=== PATIENT | male | born 1940 | race Caucasian/White ===

== ENCOUNTER 2022-09-27 07:42 | Day surgery (SDC) | payer MEDICARE, SELFPAY ==
[2022-09-27] VITALS (7 sets, daily range): BP systolic 129–161; BP diastolic 64–80; PULSE 46–61; RESP 16–17; TEMP 36.4–36.5; O2SAT 92–98; BMI 21.1
[2022-09-27] MEDS: Lactated Ringers 1,000 ML 15 ML IV (08:44)
--- NOTE | 2022-09-27 09:26 | HP.PCM_ITS ---
HPI - General HPI Narrative KIMBERLI WALTERS, is a 82 M who presents for right ectr for CTS. Here with his son. No changes to h and p. Right wrist marked. Plan per Dr Janes duque for ashishlouis juan. OK to proceed, no further questions. Advised not to drive 2 days post op. MR#: [id number] Acct: [id number] Name:KIMBERLI SOTOMAYOR Rep #: [id number] : 1940 ? ? Provider: Dr. Jered Alva MD Age/Sex:? 82/M ? ? Location: [facility] [place].KG Status: Signed Intake Vital Signs ? 09/07/2209:39 Height 5 ft 9 in Weight: 140 lb BMI 20.7 Intake Visit Reasons:?Right wrist Chief Complaint: right hand/ wrist pain Is patient in pain?: Yes (hand/ wrist) Pain scale (1-10): 8 Allergies No Known Allergies Allergy (Unverified 09/07/22 09:39) Medications finasteride 5 mg tablet 5 mg PO QDAY #90 tabs 01/09/18 [Rx Confirmed 09/07/22] ginkgo biloba extract-Panax ginseng root extract 60 mg-100 mg capsule cap PO 01/09/18 [History Confirmed 09/07/22] glucosamine sulfate 1,000 mg capsule 1,000 mg PO BID 01/09/18 [History Confirmed 09/07/22] multivitamin 1 tab PO QAM 01/09/18 [History Confirmed 09/07/22] nabumetone 500 mg tablet 500 mg PO BID #180 tabs 01/09/18 [Rx Confirmed 09/07/22] omega-3 fatty acids-fish oil 360 mg-1,200 mg capsule (Fish Oil) 1 cap PO QDAY 01/09/18 [History Confirmed 09/07/22] amlodipine 5 mg tablet mg PO 09/07/22 [History Confirmed 09/07/22] tamsulosin 0.4 mg capsule mg PO 09/07/22 [History Confirmed 09/07/22] PFSH Medical History? Anxiety Enlarged prostate Hypertension Rheumatoid arthritis Right carpal tunnel syndrome Surgical History? Cataracts, bilateral Family History? Father Diabetes CVA (cerebral vascular accident)Brother DiabetesMother Blood clots in brain Social History? Smoking Status:? Former smoker how long ago did patient quit smoking:? 25 alcohol intake:? never substance use type:? does not use what type of physical activity do you participate in:? walking frequency:? daily HPI Right wrist Details: Parts of this documentation were recorded by a scribe, this documentation accurately reflects the service provided and the decisions made by me, Dr. Jered Alva MD 09/07/22 0937. KIMBERLI WALTERS is a 82 year old M here today for? right carpal tunnel syndrome on NCS. Since may 3 months, can use them without pain but the numbness is still there. Does feel weak, starting to get a bit of strength, RHD. Worse at night, numb and stinging. Uses a chainsaw quite a bit.? This exacerbates the problem.? It is numb all the time.? It is starting to happen on the left side.? He is here with his son. Ortho Exam General General: Yes no acute distress Neurologic: Yes alert and Yes oriented x3 Psychologic: Yes reasonable and appropriate Right Wrist/Hand Skin/Wound: Yes CDI, No Swelling, No Ecchymosis, Yes nail intact and Yes capillary refill normal A1 shahid trigger: No Right Wrist: Yes Thenar Atrophy; No Tinel's or Phalen's Motor: EPL: 5, FDP-2: 5, 1st Dorsal Interosseous: 5 and APB: 4 Sensation: Radial: I, Ulnar: I and Median: D Left Wrist/Hand Skin/Wound: No Swelling and No Ecchymosis Supplemental Info Nerve conduction studies from 08/23/2022 the impression is 1.? 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 2.? There is electrophysiologic evidence consistent with chronic and very mildly active right C5 and/or C6 radiculopathy. Coding Level of Care Code Off vis,new,level 3 Diagnoses Right carpal tunnel syndrome? G56.01 Assessment and Plan Assessment and Plan (1) Right carpal tunnel syndrome: ?Status:?Acute ?Plan: 82-year-old M signs and symptoms as well as some mild clinical evidence and nerve conduction study of right median neuropathy at the wrist consistent with carpal tunnel syndrome.? We discussed the pros and cons risks and benefits of continued nonoperative management bracing physical therapy injections and surgical option for this.? He is more interested in a definitive surgical solution.? Given the severity this may be more unreliable as well as his age.? This may have been going on for longer than 3 months as well.? He wishes to go ahead with right endoscopic carpal tunnel release 2 weeks to heal the incision typically 6 weeks before going back to heavy lifting and grasping or using a chainsaw.? He understands wishes to proceed signed a consent form for right endoscopic carpal tunnel release and possible need for blood products. Pros and cons risks and benefits were discussed with the patient including but n ot limited to infection, pain, stiffness, bleeding, damage to surrounding structures, neurovascular injury, recurrence or retear, failure or wear of hardware or fixation, instability, fracture, deep vein thrombosis and pulmonary embolism, anesthetic risks, patient dissatisfaction, need for further surgery and other risks.? Patient understood and wished to proceed with surgery, and signed the informed consent documentation. COUNTS INCLUDE 234 BEDS AT THE [facility] Medical History (Updated 09/22/22 @ 12:03 by Felicia Farrell) Anxiety Anxiety Arthritis Back pain Bladder disease Cancer Depression Easy bruising Enlarged prostate Former smoker Heartburn History of edema History of pain when walking Hypertension Hypertension Injury of head and neck Leg cramps Prostate disease Restless legs Rheumatoid arthritis Right carpal tunnel syndrome Wears dentures Wears partial dentures Home Medications finasteride 5 mg tablet 5 mg PO QDAY #90 tabs 01/09/18 [Rx Last Taken Unknown] ginkgo biloba extract-Panax ginseng root extract 60 mg-100 mg capsule 1 cap PO DAILY 01/09/18 [History Last Taken Unknown] omega-3 fatty acids-fish oil 360 mg-1,200 mg capsule (Fish Oil) 1 cap PO QDAY 01/09/18 [History Last Taken Unknown] amlodipine 5 mg tablet 5 mg PO DAILY 09/07/22 [History Last Taken Unknown] tamsulosin 0.4 mg capsule 0.4 mg PO DAILY 09/07/22 [History Last Taken Unknown] SUPER VEGGIES 1 cap PO/SL BID 09/22/22 [History Last Taken Unknown] Super Frui 1 cap PO/SL DAILY 09/22/22 [History Last Taken Unknown] acetaminophen 650 mg tablet,extended release (Tylenol 8 Hour) 650 mg PO QHS 09/22/22 [History Last Taken Unknown] ascorbic acid (vitamin C) 1,000 mg chewable tablet 1 g PO DAILY 09/22/22 [History Last Taken Unknown] cholecalciferol (vitamin D3) 125 mcg (5,000 unit) tablet (Vitamin D3) 125 mcg PO DAILY 09/22/22 [History Last Taken Unknown] ferrous sulfate 325 mg (65 mg iron) tablet (Iron (ferrous sulfate)) 325 mg PO DAILY 09/22/22 [History Last Taken Unknown] glucosamine sulf dipot chlr,msm,chond 550 mg-C 30 mg-jeremy 1 mg capsule (Glucosamine Chondroitin) 1 cap PO DAILY 09/22/22 [History Last Taken Unknown] vitamin B complex 1 cap PO DAILY 09/22/22 [History Last Taken Unknown] Allergy/AdvReac Type Severity Reaction Status Date / Time No Known Allergies Allergy Unverified 09/27/22 08:23 Family History Father Diabetes CVA (cerebral vascular accident) Brother Diabetes Mother Blood clots in brain Surgical History (Updated 09/22/22 @ 12:03 by Felicia Farrell) Cataracts, bilateral Hx of colonoscopy Social History Smoking Status: Former smoker how long ago did patient quit smokin alcohol intake: never substance use type: does not use what type of physical activity do you participate in: walking frequency: daily Vital Signs Vital Signs Vital Signs: 09/27/22 08:26 09/27/22 08:26 Temperature 97.7 F L Temperature Source Temporal Pulse Rate 61 Respiratory Rate 16 Respiratory Pattern Normal Blood Pressure 147/64 H Blood Pressure Mean 91 Blood Pressure Source Monitor Blood Pressure Position Semi-Fowlers Blood Pressure Location Left Arm Pulse Ox 98 Oxygen Delivery Method Room Air Weight Weight: 143 lb 4.807 oz Body Mass Index (BMI) 21.1
[2022-09-27] MEDS: Cefazolin 2 GM in 0.9% Normal Saline 100 ML IV (09:54)
--- NOTE | 2022-09-27 10:40 | OP.PCM_ITS ---
Problems Associated Problem List Diagnoses (1) Right carpal tunnel syndrome: Report of Operation Date of Procedure: 09/27/22 Pre-Operative Diagnosis: right carpal tunnel syndrome Post-Operative Diagnosis: same Surgery/Procedure Performed:: right endoscopic carpal tunnel release Surgeon: Jered Alva Type of Anesthesia: Block,[place] Anesthesiologist: Jamie Zafar Estimated Blood Loss (mL): 5cc Description of Procedure: Patient was brought to the operating room theater.? The patient was administered 2 g of IV Ancef prior to the start of the procedure.? Placed supine on the operating room table.? Anesthesia induced ashish block. ? SCDs on the legs.? Tourniquet applied to the operative extremity, appropriately padded. Arm table used. Operative extremity prepped and draped in the usual sterile fashion with chlorhexidine-based prep solution allowing over 3 minutes drying time prior to draping.? Preoperative timeout performed to confirm the site patient and the surgery. Used the [employer] [place] endoscopic carpal tunnel kit / technique.? I made a transverse 2 cm incision in line with the? transverse wrist crease.? This was in line with the fourth digit.? I carried the dissection down through skin and subcutaneous tissue achieved meticulous hemostasis. Just ulnar to palmaris tendon.? I incised the antebrachial fascia.? I passed sequential dilators into the carpal tunnel along the radial border of the Guyon's canal aiming for the fourth digit with the hand in extension.? I used a synovial elevator to identify the transverse fibers of the transverse carpal tunnel ligament.? Passed the scope into the carpal tunnel. Once I had identified the full proximal and distal extent of the ligament I fully released the ligament under direct visualization by deploying the blade and slowly withdrawing the scope made sequential passes until I no longer felt tension as well as the entire extent of the ligament was released under direct visualization.?Sounded the tunnel with vincent tenotomy scissors, complete release, no bands. Arthroscope light was more visible through the skin. Pictures taken and saved. Wound thoroughly irrigated.? Tourniquet let down prior to end of the case and meticulous hemostasis achieved.? Thorough irrigation.? ? Incision closed with 3- 0 Monocryl.? Steri-Strips were applied after the skin was cleaned and dried. Water safe sponge dressing applied.? Patient woken up,? transferred off the operating room table and taken to postanesthetic care unit in stable condition. All sponge needle instrument counts were correct no complications.? Plan for the patient to be discharged home according to day surgery criteria when they are comfortable. Follow-up in the office in 2 days time. Complications none Admit VTE Documentation VTE Present on Admission: No VTE Mechan Device Prophylaxis: SCD's VTE Pharm Prophylaxis ordered?: No Reason prophylaxis not ordered:: Treatment Not Indicated Procedures Musculoskeletal [id number]: Other Procedure See Report
--- NOTE | 2022-09-27 10:42 | DCINST_ITS ---
Discharge Instructions Diet Discharge Diet: No restrictions Activity Discharge Activity: May Shower Ice area for (Minutes): 10 Lifting Restrictions: ok to use and hand and wrist, no heavy lifting or gripping Dressing / Incision Call your doctor if your incision/area has: Continuous Slow Oozing, Sudden Increased Bleeding, Increased Pain/ Swelling, Increased Redness, Foul Smelling Discharge and Swelling at the incision site Remove Dressing in: leave in place till F/U Cleanse incision/area with: Do not get Incision Wet Follow Up Care Please Follow Up With: Jered Alva MD When: 2 days Test Results: Test results from this visit will be discussed in further detail at your follow- up appointment, if applicable. Discharge Plan Admission Attending Provider: Jered Alva Primary Care Provider: Zack Fay Instructions Patient Instructions: Carpal Tunnel Release Surgery Discharge Orders/Prescriptions Prescriptions: No Action omega-3 fatty acids-fish oil [Fish Oil] 360-1,200 mg capsule 1 cap PO QDAY ginkgo biloba extract-Panax ginseng root extract 60 mg-100 mg capsule 60-100 mg capsule 1 cap PO DAILY finasteride 5 mg tablet 5 mg PO QDAY Qty: 90 3RF tamsulosin 0.4 mg capsule 0.4 mg PO DAILY amlodipine 5 mg tablet 5 mg PO DAILY acetaminophen [Tylenol 8 Hour] 650 mg Tablet Extended Release 650 mg PO QHS Vitamin C 1,000 mg Tablet,Chewable 1 g PO DAILY vitamin B complex [Super B Complex] Capsule 1 cap PO DAILY cholecalciferol (vitamin D3) [Vitamin D3] 125 mcg (5,000 unit) Tablet 125 mcg PO DAILY Glucosamine Chondroitin 550-30-1 mg Capsule 1 cap PO DAILY ferrous sulfate [Iron (ferrous sulfate)] 325 mg (65 mg iron) Tablet 325 mg PO DAILY SUPER VEGGIES 1 cap PO/SL BID Super Frui 1 cap PO/SL DAILY Referrals / Follow Up: Zack Fay MD [Primary Care Provider] - Jered Alva MD [Med Staff - Active Staff] - Disposition Discharge Orders: Discharge Patient (Routine); Ordered 09/27/22 Ordered By: Jered Alva
== END 2022-09-27 11:57 | disposition home or self-care (01) ==
LOC: SDC 07:44 → AC 07:47
PROVIDERS: PCP Family Medicine; Referring Provider Family Medicine; Visit Provider Orthopaedic Surgery Sports Medicine
PROC: (CPT 29848; principal; 2022-09-27 09:20)
DX: G56.01 Carpal tunnel syndrome, right upper limb (principal); N40.0 Benign prostatic hyperplasia without lower urinary tract symptoms; I10 Essential (primary) hypertension; Z87.891 Personal history of nicotine dependence; Z79.899 Other long term (current) drug therapy
CPT/HCPCS: 29848; 01810; J7120

== ENCOUNTER 2024-05-28 12:59 | Inpatient (IN) | payer MEDICARE, SELFPAY ==
[2024-05-28] VITALS (12 sets, daily range): BP systolic 145–180; BP diastolic 72–110; PULSE 57–89; RESP 16–24; TEMP 36.1–36.6; O2SAT 94–100; BMI 19.8; BMI 19.3
--- NOTE | 2024-05-28 13:55 | RAD_ITS ---
STUDY: X-RAY CHEST REASON FOR EXAM: Male, 84 years old. Acute stroke suspected. TECHNIQUE: Single frontal view of the chest. COMPARISON: None. FINDINGS: Hyperinflation of the right lung with scattered healed parenchymal granulomatous calcifications. There is no demonstrated pleural abnormality. Cardiomegaly. Large left hilar mass measuring approximately 5 cm in widest diameter, with loss of volume of the left lung. Normal visualized pulmonary arteries. Normal visualized aortic arch and descending thoracic aorta. No abnormality of the visualized soft tissue structures of the upper abdomen. RAD/Chest 1 View IMPRESSION: Hyperinflation of the right lung. Left hilar mass with loss of volume of the left lung. Malignancy highly likely and chest CT with contrast for further evaluation may be warranted. Electronically Signed: Jarvis Palomares MD at 14:57 EDT ,
--- NOTE | 2024-05-28 13:55 | EKG12_ITS ---
Test Reason : POSS STROKE Blood Pressure : / mmHG Vent. Rate : 055 BPM Atrial Rate : 055 BPM P-R Int : 138 ms QRS Dur : 138 ms QT Int : 442 ms P-R-T Axes : 070 -49 000 degrees QTc Int : 422 ms Sinus bradycardia with Fusion complexes Left axis deviation Right bundle branch block Abnormal ECG Confirmed by Que Richardson ([id number]), editorial manager DANYEL MAYO ([id number]) on 06/02/2024 10:36:52 AM Referred By: Confirmed By:Que Richardson
--- NOTE | 2024-05-28 13:56 | CT_ITS ---
STUDY: CTA HEAD AND NECK WITH CONTRAST REASON FOR EXAM: Male, 84 years old. Neuro deficit, acute, stroke suspected -- Headache x 1 week, has undergone chiropractic miguelina RADIATION DOSAGE (If Supplied By Facility): CTDIvol = ( 28.94 ) mGy, DLP = ( 1486.00 ) mGycm TECHNIQUE: CT angiography was performed with a multi-detector CT scanner. Data acquisition was obtained from the skull base through the vertex following intravenous administration of IV 100mL [id number]-370. MIP images were reconstructed from the axial data set. Post-processing of the angiographic images was performed, with multiplanar reformation and 3D reconstruction. Individualized dose optimization techniques were used for this CT. COMPARISON: No relevant priors. FINDINGS: Normal bilateral petrous carotid arteries. There is calcified plaque formation of the right cavernous carotid artery, without a cross-sectional luminal stenosis. There is calcified plaque formation of the left cavernous carotid artery, without a cross-sectional luminal stenosis. Normal right A1 segments of the anterior cerebral artery. Normal left A1 segments of the anterior cerebral artery. Normal intact anterior communicating artery (ACOM). Normal bilateral A2 segments of the anterior cerebral arteries. Normal right M1 and M2 segments of the middle cerebral arteries, with a normal M1 bifurcation. Normal left M1 and M2 segments of the middle cerebral arteries, with a normal M1 bifurcation. Normal right posterior communicating artery (PCOM). Normal left posterior communicating artery (PCOM). Normal bilateral vertebral arteries. Normal basilar artery with a normal basilar bifurcation. The visualized bilateral superior cerebellar (SCA) arteries are normal. Normal bilateral P1, P2 and visualized P3 segments of the posterior cerebral arteries. There is no demonstrated aneurysm of the mor[place] of [place]. There is evidence of cerebral and cerebellar atrophy. Prominent CSF spaces especially overlying the right frontal lobe suggestive of possible chronic hygromas. There is evidence of a 2.8 cm x 2.2 cm area of irregular hypodensity in the posterior right temporal parietal lobes. A neoplastic process should be ruled out. AORTIC ARCH: There is atherosclerotic calcific plaque formation of the aortic arch and great vessels arising from the aortic arch, without a hemodynamically significant stenosis. There is a normal origin of the brachiocephalic, left common carotid, and left subclavian arteries. Atherosclerotic plaque formation at the origin of the left subclavian artery. RIGHT CAROTID ARTERIES: Normal right common carotid artery (CCA). Normal right common carotid bulb. There is extensive atherosclerotic plaque formation of the origin of the right internal carotid artery with an estimated stenosis of greater than 70%. Normal visualized cervical portion of the right internal carotid artery. Normal origin of the right external carotid artery (ECA). LEFT CAROTID ARTERIES: Normal left common carotid artery (CCA). Normal left common carotid bulb. There is mild atherosclerotic plaque formation of the origin of the left internal carotid artery with less than 50% cross sectional diameter stenosis. Normal visualized cervical portion of the left internal carotid artery. Normal origin of the left external carotid artery (ECA). VERTEBRAL ARTERIES: Normal bilateral vertebral arteries. CT/STROKE CTA Head AND Neck W/Con IMPRESSION: Findings suggestive of a 2.8 cm x 2.2 cm irregular hypodensity posterior right temporal parietal lobes suggestive of a possible neoplastic process. Sujata a 70% narrowing at the origin of the right internal carotid artery. Less than 50% narrowing at the origin of the left internal carotid artery. N.B. : The above Results were Read Back by Vernon Cowart MD to Dr Duke MD, and understanding confirmed on 05/28/2024 14:56:45 (ET). Electronically Signed: Vernon Cowart MD at 14:58 EDT ,
--- NOTE | 2024-05-28 14:02 | NURSING ---
NO OLD EKGS
--- NOTE | 2024-05-28 14:10 | EDS_ITS ---
HPI History of Present Illness Chief Complaint: Neuro S/Sx Detail of Chief Complaint: Numbness left foot x 3 weeks, numbness left upper extremity past week and g Informant: patient Onset/Context/Timing Onset: Weeks Context: Sudden Onset Timing: Continuous Quality: Numbness Location: Left foot, left upper extremity and global headache Current Severity: Gone (With respect to the numbness of his foot and left upper extremity. He complains of a significant headache, however) Maximum Severity: Could not quantitate Worsened by: Nothing Relieved by: Nothing Associated Symptoms Associated Symptoms: Denies visual, auditory, motor weakness or problems with speech and coordin Narrative Narrative: Patient is an 84-year-old gentleman. He had a significant head trauma in the past with significant scalp laceration. He developed neck pain 1 week after this. He has been seeing a chiropractor. He is seeing a chiropractor because of numbness in his left foot. Was felt that his spine was put of alignment. He has had his neck manipulated. And spite of his neck being manipulated the foot numbness is not improved. He also complains of left upper extremity numbness that started a week ago. Presently has no numbness or altered sensation. He does have a headache that has been present for a week, which is global and is significant. Patient denies double vision, blurred vision loss of vision. Patient [place] trouble with speech or swallowing. Patient denies problems with fine motor activity, coordination or balance. Patient denies cardiac or respiratory symptoms. Patient denies GI symptoms. Prior similar symptoms: No Recent Illness/Hospitalization: No PFSH [facility] Medical History Wears partial dentures Wears dentures Cancer Depression Anxiety Arthritis Prostate disease Bladder disease Easy bruising Restless legs Back pain Injury of head and neck Heartburn Former smoker Leg cramps History of pain when walking History of edema Hypertension Right carpal tunnel syndrome Enlarged prostate Rheumatoid arthritis Anxiety Hypertension Home Medications ?Medication ?Instructions ?Recorded ?Last Taken ?Type finasteride 5 mg tablet 5 mg PO QDAY #90 tabs 01/09/18 Unknown Rx omega-3 fatty acids-fish oil 360 1 cap PO QDAY 01/09/18 Unknown History mg-1,200 mg capsule (Fish Oil) tamsulosin 0.4 mg capsule 0.4 mg PO DAILY 09/07/22 Unknown History SUPER VEGGIES 1 cap PO/SL BID 09/22/22 Unknown History Super Frui 1 cap PO/SL DAILY 09/22/22 Unknown History acetaminophen 650 mg 650 mg PO QHS 09/22/22 Unknown History tablet,extended release (Tylenol 8 Hour) ascorbic acid (vitamin C) 1,000 mg 1 g PO DAILY 09/22/22 Unknown History chewable tablet cholecalciferol (vitamin D3) 125 125 mcg PO DAILY 09/22/22 Unknown History mcg (5,000 unit) tablet (Vitamin D3) glucosamine sulf dipot 1 cap PO DAILY 09/22/22 Unknown History chlr,msm,chond 550 mg-C 30 mg-jeremy 1 mg capsule (Glucosamine Chondroitin) vitamin B complex 1 cap PO DAILY 09/22/22 Unknown History Allergy/AdvReac Type Severity Reaction Status Date / Time No Known Allergies Allergy Verified 05/28/24 13:03 Family History Father Diabetes CVA (cerebral vascular accident) Brother Diabetes Mother Blood clots in brain Surgical History Hx of colonoscopy Cataracts, bilateral Social History Smoking Status: Former smoker how long ago did patient quit smokin alcohol intake: never substance use type: does not use what type of physical activity do you participate in: walking frequency: daily ROS ROS ED Constitutional Constitutional ED: Denies chills, fever(s) or subjective Eyes Eyes: Denies blurry vision, change in vision or diplopia ENT ENT ED: Denies ear pain, rhinorrhea or sore throat Cardiovascular Cardiovascular: Denies chest pain, palpitations or racing heartbeat Respiratory/Chest Respiratory/Chest: Denies cough, dyspnea or dyspnea on exertion Gastrointestinal Gastrointestinal: Denies abdominal pain, nausea or vomiting Musculoskeletal Musculoskeletal: Reports neck pain; Denies back pain or myalgias Integumentary Denies abscess or rash Neurologic Neurologic: Denies headache(s), paresthesias or weakness Psychiatric Psychiatric: Denies anxiety or depression Hematologic/Lymphatic Hematologic/Lymphatic: Reports systems reviewed and no addt'l complaints, except as documented EXAM Physical Exam Const Vital Signs: 05/28/24 13:01 05/28/24 14:00 05/28/24 14:10 Temperature 97.8 F Temperature Source Oral Pulse Rate 72 59 L Respiratory Rate 16 20 H Blood Pressure 180/82 H 157/73 H Blood Pressure Mean 114 101 Pulse Ox 96 Oxygen Delivery Method Room Air Room Air 05/28/24 14:13 Temperature Temperature Source Pulse Rate 57 L Respiratory Rate 18 Blood Pressure 157/73 H Blood Pressure Mean 101 Pulse Ox Oxygen Delivery Method Room Air Positive well nourished and well developed General Appearance ED: well developed, NAD and pallor; Negative for cyanotic or diaphoretic HEENT Reports moist mucous membranes HEENT Narrative: Normal cephalic. Patient has what I believed to be a sebaceous cyst near the occiput prominence on the right. There is no erythema, warmth or induration. Neck is supple. There is no meningeal findings. Nares patent. Posterior pharynx is normal. Uvula midline. No deviation or protrusion. Eyes PERRL and EOMs intact bilaterally General Eye ED: Negative for pale conjunctiva or scleral icterus Neck supple and no JVD Resp normal respiratory effort and clear to auscultation bilaterally Cardio regular rate, regular rhythm, S1 normal heart sound, S2 normal heart sound and no murmurs GI normal to inspection, nondistended, normoactive bowel sounds, non-tender, non- distended and no masses; Negative for hepatosplenomegaly Back/Spine no CVA tenderness Extremity normal to inspection General Extremety ED: Negative for edema or tenderness General Extremity: Negative for edema Neuro oriented x3, CN's II-XII intact bilaterally and no sensory deficits noted Neuro Narrative: NIH is 0 Sensorium / Orientation: alert Motor Exam: strength 5/5 throughout Psych mental status grossly normal Skin no rashes or lesions noted, no wounds and skin turgor normal General Skin Exam: pallor; Negative for jaundice MDM MDM MDM Narrative Medical decision making narrative: Peripheral neuropathy, dissection, TIA. Stroke order set was initiated and CTA of the head neck was ordered because of the fact that he has a headache and discomfort after chiropractic manipulation. Lab Data Attestation: I reviewed the patient's lab results. Lab results narrative: White count, H&H differential normal. Electrolyte panel is unremarkable. He has elevated BUN to creatinine ratio otherwise normal. First troponin normal. Labs: Laboratory Results - last 24 hr 05/28/24 13:25 WBC 11.0 RBC 4.79 Hgb 13.8 Hct 42.9 MCV 89.6 MCH 28.8 MCHC 32.2 RDW Std Deviation 40.8 RDW Coeff of Seun 12.4 Plt Count 278 MPV 11.2 Immature Gran % (Auto) 0.400 Neut % (Auto) 78.2 H Lymph % (Auto) 11.4 L [place] % (Auto) 8.9 Eos % (Auto) 0.7 Baso % (Auto) 0.4 Absolute Neuts (auto) 8.6 H Absolute Lymphs (auto) 1.26 Nucleated RBC % 0 PT 13.9 INR 1.1 APTT 30.0 Sodium 138 Potassium 4.1 Chloride 104 Carbon Dioxide 26.0 Anion Gap 8 BUN 24 H Creatinine 0.76 Estim Creat Clear Calc 58.34 Est GFR (MDRD) Af Amer 125 Est GFR (MDRD) Non-Af 104 BUN/Creatinine Ratio 31.6 H Glucose 99 Calcium 9.9 Troponin I High Sens 22 Radiography Chest X-Ray - ED: 1 View and Read by ED Physician (Elevated left hemidiaphragm with atelectasis on the left. Cardiac size is normal. Left cardiac border is somewhat obscured. Hilum is unremarkable. Osseous structures appear unremarkable. There appears to be a mass left hilum.) Diagnostic Testing: Clinical Impression(s) from Imaging Studies Chest X-Ray 05/28/24 13:55 IMPRESSION: Hyperinflation of the right lung. Left hilar mass with loss of volume of the left lung. Malignancy highly likely and chest CT with contrast for further evaluation may be warranted. Electronically Signed: Jarvis Palomares MD at 14:57 EDT Reading Location ID and State: [facility] / [place] , Service support , Head/Neck CTA 05/28/24 13:56 IMPRESSION: Findings suggestive of a 2.8 cm x 2.2 cm irregular hypodensity posterior right temporal parietal lobes suggestive of a possible neoplastic process. Sujata a 70% narrowing at the origin of the right internal carotid artery. Less than 50% narrowing at the origin of the left internal carotid artery. N.B. : The above Results were Read Back by Vernon Cowart MD to Dr Duke MD, and understanding confirmed on 05/28/2024 14:56:45 (ET). Electronically Signed: Vernon Cowart MD at 14:58 EDT , ADDENDUM: 05/28/24 1505 IMPRESSION: Findings suggestive of a 2.8 cm x 2.2 cm irregular hypodensity posterior right temporal parietal lobes suggestive of a possible neoplastic process. Sujata a 70% narrowing at the origin of the right internal carotid artery. Less than 50% narrowing at the origin of the left internal carotid artery. N.B. : The above Results were Read Back by Vernon Cowart MD to Dr Duke MD, and understanding confirmed on 05/28/2024 14:56:45 (ET). Electronically Signed: Vernon Cowart MD at 14:58 EDT , CT of the head and CTA of the head neck reveals a 2.8 x 2.2 irregular hypodense density posterior right temporal parietal lobe suggestive of a neoplasm. This is highly suggested since he has a left hilar mass on his chest x-ray. Management Discussion w/another healthcare provider: Hospitalist (Spoke to hospitalist Dr. Rome. She will admit. She will consult neurology for input. She was told I spent 30 minutes with patient and son. He at this time would not want his brain biopsy. He is agreeable to have his left hilar mass biopsied. He will receive Decadron for and morphine for his hea) and Assistant Corporation Counsel (Radiologist contacted me. 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 There is also a tumor noted. Awaiting formal read before talking with patient.) Treatment and Re-Evaluation :: 30 minutes spent with son and patient to discuss chest x-ray CAT scan results and appropriate workup. In light of the patient being 84 years of age he at this time would not like his brain biopsy. He is agreeable to have the mass in the left hilum biopsied to determine the type of cancer and what treatment options he has and what the side effects are of those meds and what he can expect as far as life expectancy and quality of life. Discharge Plan Triage Chief Complaint: Neuro S/Sx ED Provider: Marty Wall Dx/Rx/DC Orders Clinical Impression: Hilar mass, Hypertension, Mass of right parietal lobe, Severe headache, Sinus bradycardia Prescriptions: No Action omega-3 fatty acids-fish oil [Fish Oil] 360-1,200 mg capsule 1 cap PO QDAY finasteride 5 mg tablet 5 mg PO QDAY Qty: 90 3RF tamsulosin 0.4 mg capsule 0.4 mg PO DAILY acetaminophen [Tylenol 8 Hour] 650 mg Tablet Extended Release 650 mg PO QHS Vitamin C 1,000 mg Tablet,Chewable 1 g PO DAILY vitamin B complex [Super B Complex] Capsule 1 cap PO DAILY cholecalciferol (vitamin D3) [Vitamin D3] 125 mcg (5,000 unit) Tablet 125 mcg PO DAILY Glucosamine Chondroitin 550-30-1 mg Capsule 1 cap PO DAILY SUPER VEGGIES 1 cap PO/SL BID Super Frui 1 cap PO/SL DAILY Primary Care Provider: Zack Fay Referrals: Zack Fay MD [Primary Care Provider] - Print Language: Bangladeshi Disposition Disposition: Acute Care [facility]
[2024-05-28 14:18] LABS: Absolute Lymphocyte Count 1.26 X10^3/uL (0.83-4.51); Absolute Neutrophil Count 8.6 X10^3/uL (2.0-7.7); Basophil# 0.04 X10^3/uL; Basophil% 0.4 % (0-1); Eosinophil# 0.08 X10^3/uL; Eosinophils% 0.7 % (0-5); Hematocrit 42.9 % (40-54); Hemoglobin 13.8 g/dL (13.0-16.5); Lymphocyte # 1.26 X10^3/ul (0.83-4.51); Lymphocyte % 11.4 % (19-41); Mean Corp Hgb Conc 32.2 g/dL (32-36); Mean Corpuscular Hgb 28.8 pg (27.0-32.0); Mean Corpuscular Volume 89.6 fL (80-94); Mean Platelet Vol. 11.2 fl (6.2-12.0); Monocyte# 0.98 X10^3/uL; Monocyte% 8.9 % (0-10); NRBC Flagged by Analyzer 0 % (0-5); Neutrophil # 8.61 X10^3/uL (2.7-7.7); Neutrophil % 78.2 % (47-70); Platelet Count 278 K/mm3 (150-450); RBC Distribution Width CV 12.4 % (11.6-14.6); RBC Distribution Width SD 40.8 fl (35.1-43.9); Red Blood Count 4.79 M/mm3 (4.6-6.2)
[2024-05-28 14:27] LABS: International Normalized Ratio 1.1; Prothrombin Time (Protime)PT. 13.9 SECONDS (11.7-14.9)
[2024-05-28 14:32] LABS: Anion Gap 8 (5-15); BUN 24 mg/dL (7-18); BUN/Creat Ratio 31.6 RATIO (10-20); Calcium,Total 9.9 mg/dL (8.5-10.1); Chloride 104 mmol/L (98-107); Creatinine, Serum 0.76 mg/dL (0.70-1.30); EST Glomerular Filtration Rate 104 mL/min (>60); Est Glom Filt Rate - Afr Amer 125 mL/min (>60); Estimated Creatinine Clearance 58.34 ml/min; Glucose 99 mg/dL (74-106); Potassium 4.1 mmol/L (3.5-5.1); Sodium Level 138 mmol/L (136-145); Troponin-I HS 22 pg/mL (3.0-78.0)
[2024-05-28] MEDS: dexAMETHasone 10 MG/ML Vial IV (15:52)
[2024-05-28] MEDS: Morphine 4 MG/ML Syringe IV (15:52)
--- NOTE | 2024-05-28 15:55 | NURSING ---
MED SURG KIRBY HILAR MASS, SEVERE HEADACHE DUE TO PARIETAL LOBE MASS
--- NOTE | 2024-05-28 16:06 | HP.PCM.HOS_ITS ---
HPI - General General Date of Admission: 05/28/24 Date of Service: 05/28/24 Chief Complaint: Headache/left foot numbness/left upper extremity numbness HPI Narrative KIMBERLI WALTERS, is a 84 M who presented to the emergency department at [facility] on 05/28/2024 for left-sided foot numbness, left upper extremity numbness and severe headache. He states that headache encompasses his whole head and is better at the present time since he was given morphine in the emergency department. He has had intermittent neck pain since that head trauma about a year or 2 ago and has been seeing a chiropractor. He started seeing chiropractor again because the numbness in his left foot and the chiropractor felt that his spine was out of alignment so he had a cervical spine manipulated and despite his C-spine manipulation his symptoms have not improved so he decided come to the emergency department for further evaluation. He denied any motor symptoms. He states the foot symptoms have been going on for about 3 weeks in the left upper extremity symptoms have been going on for about a week. He does admit to some weight loss in the last several months that was unintentional and has been having some left-sided intermittent chest pain mostly in his back that he attributed to a pulled muscle. He does have a remote history of tobacco abuse and states he quit about 30 years ago. Vital signs on presentation showed a temperature of 97.8, heart rate 72, respiratory 16, blood pressure initially 180/82 with repeat at 157/73, pulse ox was 96% on room air. His CBC was unremarkable. Coags were normal. Chemistry panel is unremarkable. Chest x-ray showed hyperinflation of the right lung with a left hilar mass and volume loss of the left lung which is highly suspicious for malignancy. CTA of the head and neck showed 70% narrowing at the origin of the right internal carotid artery and less than 50% narrowing at the origin of the left internal carotid artery with findings suggestive of a 2.8 cm x 2.2 cm irregular hypodense region in the posterior right temporal parietal lobe. Case was discussed with interventional radiology and they do feel that they can get a good CT-guided biopsy so we will admit him here. He was given 10 mg of Decadron in the emergency department for possible vasogenic edema. [facility] Medical History Wears partial dentures Wears dentures Cancer Depression Anxiety Arthritis Prostate disease Bladder disease Easy bruising Restless legs Back pain Injury of head and neck Heartburn Former smoker Leg cramps History of pain when walking History of edema Hypertension Right carpal tunnel syndrome Enlarged prostate Rheumatoid arthritis Anxiety Hypertension Home Medications ?Medication ?Instructions ?Recorded ?Last Taken ?Type finasteride 5 mg tablet 5 mg PO QDAY #90 tabs 01/09/18 Unknown Rx omega-3 fatty acids-fish oil 360 1 cap PO QDAY 01/09/18 Unknown History mg-1,200 mg capsule (Fish Oil) tamsulosin 0.4 mg capsule 0.4 mg PO DAILY 09/07/22 Unknown History SUPER VEGGIES 1 cap PO/SL BID 09/22/22 Unknown History Super Frui 1 cap PO/SL DAILY 09/22/22 Unknown History acetaminophen 650 mg 650 mg PO QHS 09/22/22 Unknown History tablet,extended release (Tylenol 8 Hour) ascorbic acid (vitamin C) 1,000 mg 1 g PO DAILY 09/22/22 Unknown History chewable tablet cholecalciferol (vitamin D3) 125 125 mcg PO DAILY 09/22/22 Unknown History mcg (5,000 unit) tablet (Vitamin D3) glucosamine sulf dipot 1 cap PO DAILY 09/22/22 Unknown History chlr,msm,chond 550 mg-C 30 mg-jeremy 1 mg capsule (Glucosamine Chondroitin) vitamin B complex 1 cap PO DAILY 09/22/22 Unknown History Allergy/AdvReac Type Severity Reaction Status Date / Time No Known Allergies Allergy Verified 05/28/24 13:03 Family History Father Diabetes CVA (cerebral vascular accident) Brother Diabetes Mother Blood clots in brain Surgical History (Updated 05/28/24 @ 16:[address] Ofelia Rome DO) History of carpal tunnel release Hx of colonoscopy Cataracts, bilateral Social History Smoking Status: Former smoker how long ago did patient quit smokin alcohol intake: never substance use type: does not use what type of physical activity do you participate in: walking frequency: daily ROS Constitutional Constitutional: Reports change in weight; Denies anorexia, chills, fatigue, fever(s), malaise, night sweats, weakness or other Eyes Eyes: Denies blurry vision, change in eye color, change in vision, discharge from eye(s), double vision, erythema, eye pain, loss of vision or other ENT HEENT: Reports abnormal hearing and hearing loss; Denies dysphagia, ear pain, epistaxis, headache(s), nasal congestion, nasal discharge, post nasal drip, sinus pressure, sore throat or other Cardiovascular Cardiovascular: Reports chest pain and other Details: Chest pain is posterior and lateral on the left side of the chest ; Denies claudication, dyspnea on exertion, edema, lightheadedness, orthopnea, palpitations, paroxysmal nocturnal dyspnea, rapid heart rate or syncope Respiratory/Chest Respiratory/Chest: Denies cough, dyspnea, excessive phlegm production, hemoptysis, productive cough, shortness of breath at rest, shortness of breath with exertion, wheezing or other Gastrointestinal Gastrointestinal: Denies abdominal pain, coffee ground emesis, constipation, diarrhea, dyspepsia, hematemesis, hematochezia, loose stools, melena, nausea, vomiting or other Genitourinary Genitourinary: Denies burning urination, difficulty urinating, dysuria, hematuria, nocturia, urinary frequency, urinary hesitancy, urinary incontinence, urinary urgency or other Musculoskeletal Musculoskeletal: Reports back pain, joint pain and neck pain; Denies arthralgias, joint stiffness, joint swelling, myalgias or other Neurologic Neurologic: Reports paresthesias LUE and LLE and tingling Psychiatric Psychiatric: Reports anxiety and depression; Denies homicidal ideation, suicidal ideation or other Endocrine Endocrinology: Denies change in body appearance, cold intolerance, excessive sweating, heat intolerance, polydipsia, polyuria or other Hematologic/Lymphatic Hematologic/Lymphatic: Denies anemia, easy bleeding, easy bruising, lymphadenopathy or other Allergic/Immunologic Allergic/Immunologic: Denies rhinitis, hives, eczemia, asthma or other Vital Signs Vital Signs Vital Signs: 05/28/24 13:01 05/28/24 14:00 05/28/24 14:10 Temperature 97.8 F Temperature Source Oral Pulse Rate 72 59 L Respiratory Rate 16 20 H Blood Pressure 180/82 H 157/73 H Blood Pressure Mean 114 101 Pulse Ox 96 Oxygen Delivery Method Room Air Room Air 05/28/24 14:13 05/28/24 15:00 Temperature Temperature Source Pulse Rate 57 L 63 Respiratory Rate 18 22 H Blood Pressure 157/73 H 175/80 H Blood Pressure Mean 101 111 Pulse Ox 100 Oxygen Delivery Method Room Air Weight Weight: 61.1 kg Body Mass Index (BMI) 19.8 Physical Exam Const alert, oriented x3 and no apparent distress Constitutional Narrative: Thin appearing, elderly, white male, sitting up in bed, appears comfortable currently, nontoxic, son at bedside General Appearance: cooperative HEENT normocephalic, head/scalp atraumatic and moist oral mucous membranes; Negative for hearing grossly normal bilaterally Eyes conjunctivae normal Eyes Narrative: No scleral icterus Neck no lymphadenopathy and supple Neck Narrative: Trachea midline, no thyroid enlargement Resp normal respiratory effort, no retractions, no use of accessory muscles and clear to auscultation bilaterally Resp Narrative: Diminished but clear Auscultation: Negative for rales, rhonchi or wheezes Cardio regular rate, regular rhythm, S1 normal heart sound, S2 normal heart sound, no murmurs, no rub, no gallops and no clicks Cardio Narrative: Few ectopic beats GI normal to inspection, nondistended, normoactive bowel sounds, soft to palpation and non-tender GI Narrative: Scaphoid abdomen Extremity no clubbing, cyanosis or edema Extremity Narrative: Radial pulses and pedal pulses are 2+ bilaterally Neuro oriented x3 and moves all extremities Speech: speech normal Psych affect normal Psych Narrative: Eye contact is good and patient interacts appropriately Results Lab / Micro Data 05/28/24 13:25 05/28/24 13:25 Labs: Laboratory Results - last 24 hr 05/28/24 13:25: WBC 11.0, RBC 4.79, Hgb 13.8, Hct 42.9, MCV 89.6, MCH 28.8, MCHC 32.2, RDW Std Deviation 40.8, RDW Coeff of Seun 12.4, Plt Count 278, MPV 11.2, Immature Gran % (Auto) 0.400, Neut % (Auto) 78.2 H, Lymph % (Auto) 11.4 L, [place] % (Auto) 8.9, Eos % (Auto) 0.7, Baso % (Auto) 0.4, Absolute Neuts (auto) 8.6 H, Absolute Lymphs (auto) 1.26, Nucleated RBC % 0, PT 13.9, INR 1.1, APTT 30.0, Sodium 138, Potassium 4.1, Chloride 104, Carbon Dioxide 26.0, Anion Gap 8, BUN 24 H, Creatinine 0.76, Estim Creat Clear Calc 58.34, Est GFR (MDRD) Af Amer 125, Est GFR (MDRD) Non-Af 104, BUN/Creatinine Ratio 31.6 H, Glucose 99, Calcium 9.9, Troponin I High Sens 22 Imaging Radiology Impression Chest X-Ray 05/28/24 13:55 IMPRESSION: Hyperinflation of the right lung. Left hilar mass with loss of volume of the left lung. Malignancy highly likely and chest CT with contrast for further evaluation may be warranted. Electronically Signed: Jarvis Palomares MD at 14:57 EDT , Head/Neck CTA 05/28/24 13:56 IMPRESSION: Findings suggestive of a 2.8 cm x 2.2 cm irregular hypodensity posterior right temporal parietal lobes suggestive of a possible neoplastic process. Sujata a 70% narrowing at the origin of the right internal carotid artery. Less than 50% narrowing at the origin of the left internal carotid artery. N.B. : The above Results were Read Back by Vernon Cowart MD to Dr Duke MD, and understanding confirmed on 05/28/2024 14:56:45 (ET). Electronically Signed: Vernon Cowart MD at 14:58 EDT , ADDENDUM: 05/28/24 1505 IMPRESSION: Findings suggestive of a 2.8 cm x 2.2 cm irregular hypodensity posterior right temporal parietal lobes suggestive of a possible neoplastic process. Sujata a 70% narrowing at the origin of the right internal carotid artery. Less than 50% narrowing at the origin of the left internal carotid artery. N.B. : The above Results were Read Back by Vernon Cwoart MD to Dr Duke MD, and understanding confirmed on 05/28/2024 14:56:45 (ET). Electronically Signed: Vernon Cowart MD at 14:58 EDT , Assessment & Plan Assessment/Plan (1) Severe headache: (2) Mass of right parietal lobe: (3) Hilar mass: PLAN: Plan Severe headache with mass in the right parietal lobe -Suspect metastatic disease -Check MRI of the brain with and without contrast -Decadron 10 mg given x 1 and then will dose 4 mg every 6 hours -Will start Keppra 500 mg p.o. twice daily empirically -Consult neurology Hilar mass -CT of the chest is pending -Order CT-guided biopsy -N.p.o. after midnight -Check a.m. coags -Will need oncology follow-up after discharge BPH with obstruction -Continue home finasteride -Continue home Flomax History of anxiety and depression -Has been doing well off his antidepressants -May need reevaluated with above pending workup History of tobacco abuse -Remote -Continue ongoing cessation DVT prophylaxis Can subcu Lovenox to start tomorrow evening after biopsy CODE STATUS -DNR CCA with no intubation as per discussion prior to admission with son at bedside Charges/Coding Visit Charges Inpatient E&M: 05814 Init Hosp L2
--- NOTE | 2024-05-28 16:10 | CT_ITS ---
INDICATION: mass EXAMINATION: CT CHEST WITHOUT CONTRAST - CT Chest W/O Contrast Injection TECHNIQUE: Helically acquired images were obtained of the chest. A radiation dose optimization technique was used for this scan. IV Contrast dosage and agent: None. COMPARISON: Portable chest May 28, 2024 FINDINGS: LUNGS, PLEURA AND LARGE AIRWAYS: There is a large irregular noncalcified left suprahilar mass measuring approximately 4.2 x 5 cm extending from the hilum towards the pleural surface in the left upper lobe.. No pleural effusion or thickening. No pneumothorax. THYROID: No thyroid lesions. HEART AND PERICARDIUM: Heart size is normal. No pericardial effusion. CORONARY ARTERIES: Coronary artery calcification VESSELS: Atherosclerotic change of the aorta without evidence for aneurysm MEDIASTINUM AND TRINH: There are enlarged left paratracheal nodes. Esophagus is unremarkable. No hiatal hernia. UPPER ABDOMEN: Heterogeneous left adrenal mass suspicious for metastasis measuring 2.63 x 2.44 cm BONES: There is a lytic destructive lesion involving the left posterior medial eighth rib with pleural thickening. 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 Electronically Signed: Augustine Diaz MD at 17:07 EDT ,
--- NOTE | 2024-05-28 16:17 | MRI_ITS ---
STUDY: MRI BRAIN WITH AND WITHOUT CONTRAST REASON FOR EXAM: Male, 84 years old. Right brain mass, COMPARE TO POSITIVE CT, HX OF LUNG CANCER, HAVING HEADACHES TECHNIQUE: Standardized multiplanar fat and water weighted pulse sequences were obtained. IV 12ML CLARISCAN was administered for the contrast portion of the examination. COMPARISON: None. FINDINGS: Mild atrophy and periventricular white matter ischemic changes.. There is a slightly heterogeneously enhancing nodule measuring approximately 1.6 x 1.05 cm in the right temporal lobe with associated edema effacing the cortical sulci consistent with metastatic lesion. There is also a rim-enhancing nodule in the right frontal lobe also in association with mild edema measuring approximately 1.4 x 1.3 cm also consistent with metastatic disease Normal bilateral basal ganglia. Normal thalami. There is no extra-axial fluid accumulation. Normal flow voids within the major intracranial circulation suggesting patency by spin echo criteria. Normal venous enhancement. . Normal sella turcica, pituitary gland, infundibular stalk, optic chiasm and hypothalamus. Normal tectal plate and pineal gland. Normal midbrain, leonel and medulla. Normal cerebellum. Normal basal cisterns. Normal bilateral temporal bones. Normal bilateral internal auditory canals. Postsurgical changes of the orbits. Normal visualized paranasal sinuses. Normal calvarium and skull base. Normal visualized soft tissue structures. Normal visualized upper cervical spine. MRI/Brain W/WO Contrast IMPRESSION: Mild atrophy and periventricular white matter ischemic changes.. Enhancing lesions with edema in the right temporal and frontal lobes consistent with metastatic disease Electronically Signed: Augustine Diaz MD at 20:40 EDT ,
[2024-05-28] MEDS: Acetaminophen 500 MG Tablet 1000 MG PO (22:49)
[2024-05-28] MEDS: dexAMETHasone 4 MG/ML Vial IV (22:50)
[2024-05-28] MEDS: levETIRAcetam 500 MG Tablet PO (22:52)
[2024-05-28] MEDS: 0.9% Saline Lock 10 ML Syringe IV (22:53)
[2024-05-29] VITALS (18 sets, daily range): BP systolic 126–178; BP diastolic 64–88; PULSE 51–66; RESP 12–20; TEMP 35.5–36.7; O2SAT 93–97
--- NOTE | 2024-05-29 | IMM_PTH ---
PATIENT: KIMBERLI WALTERS LOC: [facility] U#:[id number] AGE/SX: 84/M ROOM: [facility] RE05/28/[address]: Dr. Gregg Amos DO : 1940 BED: 1 DIS: 05/30/2024 SPEC #: [id number] RECD: 05/29/24 11:14 STATUS: SOUT REQ #: [id number] ROBIN: 05/29/24 00:[address]: Gregg Amos DEPT: IMMUNOHISTOCHEMISTRY RECD BY: Leon Grady ENTERED: 05/29/24 11:15 SP TYPE: IMMUNO OTHR DR: MD Dr. ySlvia Red MD Archana Hinduja, MD Dr. Allison Jordan, DO Dr. Alicia Zha, MD Dr. Christophe Boyd, MD Dr. Deepak Gulati, MD Dr. Hera Kamdar, MD Dr. Jan Bittar, MD Dr. James Burke, MD Dr. Jorge Morales, MD Dr. Kathryn Lee, DO Margaret Beigel, MD Dr. Matthew Gusler, MD Dr. Maryam Mian, MD Dr. Mohamed Ridha, MD Dr. Mhd Ezzat Zaghlouleh, MD Dr. Peter Robinson, MD Dr. Rami Ibrahim, MD Dr. Sushil Lakhani, MD Dr. Vivien Lee, MD Yousef Hannawi, MD Tissues: Lung, NOS Procedures: RCC (add) NAPSIN A (add) CK20 (add) CK5-6 (add) CK7 (add) CK8 (add) HEP PAR (add) KI-67 (add) TTF1 (add) Pankeratin (initial) P40 (add) PSAP (add) PHYSICIAN & [address] [address] SPECIMEN INFORMATION: Tissue Source: Left lung mass biopsy Clinical Info: Specimen Number: [id number] CPT code: 56732,44831u17 METHODOLOGY: Deparaffinized sections of prefer/formalin-fixed tissue or PAP/DQ stained slides are incubated with monoclonal/polyclonal antibodies/oligonucleotide probes. Localization is made via biotin free immunoperoxidase method. Appropriate controls are performed and reacted as expected. Results on target cell population are indicated in the following table: RESULTS: ANTIBODY / CLONE RESULT AE1-3 (AE1/AE3/PCK26) positive CK7 (OV-TL12/30) positive CK8 (47ozqcU11) positive CK20 (KS20.8) negative TTF-1 (8G7G3/1) negative Napsin A (Rabbit Polyclonal) negative HepPar (OCh1E5) negative RCC (PN-15) negative PSAP (PASE/4LJ) negative CK5-6 (D5 & 1684) positive P40 (BC28) negative Ki-67 (30-9) positive, moderate These tests were developed and their performance characteristics determined by [facility]. They may not have been cleared or approved by the U.S. Food and Drug Administration. The FDA has determined that such clearance or approval is not necessary. The above immunohistochemical/dualISH markers are ordered and reviewed by the Pathologist. INTERPRETATION: Left lung mass, CT guided core biopsy: Non-small cell carcinoma, favor squamous cell carcinoma. See comment. Comment: Tumor shows extensive necrosis. Case has been reviewed in consultation with Dr. Toth who concurs with the above diagnosis. IDC:JAMES PHAMmr 05/30/2024
--- NOTE | 2024-05-29 | ASPIGT_PTH ---
PATIENT: KIMBERLI WALTERS LOC: [facility] U#:[id number] AGE/SX: 84/M ROOM: [facility] RE05/28/[address]: Dr. Gregg Amos DO : 1940 BED: 1 DIS: 05/30/2024 SPEC #: [id number] RECD: 05/29/24 11:28 STATUS: WILLIAM REQ #: [id number] ROBIN: 05/29/24 00:[address]: Gregg Amos DEPT: SURGICAL PATHOLOGY RECD BY: Jameson Davis ENTERED: 05/29/24 11:30 SP TYPE: ASP RAD OTHR DR: MD Dr. Sylvia Red MD Archana Hinduja, MD Dr. Allison Jordan, DO Dr. Alicia Zha, MD Dr. Christophe Boyd, MD Dr. Deepak Gulati, MD Dr. Hera Kamdar, MD Dr. Jan Bittar, MD Dr. James Burke, MD Dr. Jorge Morales, MD Dr. Kathryn Lee, DO Margaret Beigel, MD Dr. Matthew Gusler, MD Dr. Maryam Mian, MD Dr. Mohamed Ridha, MD Dr. Mhd Ezzat Zaghlouleh, MD Dr. Peter Robinson, MD Dr. Rami Ibrahim, MD Dr. Sushil Lakhani, MD Dr. Vivien Lee, MD Yousef Hannawi, MD Tissues: Chest wall, NOS Procedures: FNA Specimen Adequacy Special Stain Group II Surgery Specimen Level IV Imprint (control) HEADER OPERATION: CT guided lung biopsy PRE-OP DIAGNOSIS: Left chest mass TISSUE SUBMITTED: 20 gauge x 6 cores MICROSCOPIC DIAGNOSIS Left lung, CT guided core biopsy: Non-small cell carcinoma with extensive necrosis, favor squamous cell carcinoma. See comment. SJ. Birch 05/30/2024 COMMENT The specimen is evaluated at the time of biopsy by Dr. Navarro. Immediate Evaluation = Malignant cells present derived from non-small cell carcinoma in the background of extensive necrosis. Immunohistochemistry ([id number]) supports the above diagnosis. Molecular study on the tumor can be performed if clinically indicated. Please notify the laboratory if it is needed. This case is discussed with Dr. Gregg Amos on 05/30/2024. Case has been reviewed in consultation with Dr. Toth who concurs with the above diagnosis. IDC:AM MICROSCOPIC DESCRIPTION Slides are reviewed. GROSS DESCRIPTION Received in fixative is one container labeled with the patient's name and designated Left lung biopsy. The specimen consists of multiple irregular fragments of light gonzalez soft tissue that in aggregate measure 1.5 x 0.3 x 0.1 cm. The specimen is totally submitted in one cassette. Three touch imprints are prepared at the time of core biopsy. 05/29/2024 TC:0 CPT:23656,90048 ADDENDUM ADDENDUM ADDENDUM ADDENDUM ADDENDUM ADDENDUM 06/09/2024 15:21 ADDENDUM 06/09/2024 15:21 ADDENDUM 06/09/2024 15:21 ADDENDUM 06/09/2024 15:21 ADDENDUM 06/09/2024 15:21 PD-L1 (KEYTRUDA) IMMUNOHISTOCHEMICAL ANALYSIS FROM [facility] RESULTS: Tumor proportion score: 10-15% / POSITIVE Please see complete report in e-chart or EMR
[2024-05-29] MEDS: Acetaminophen 500 MG Tablet 1000 MG PO ×3 (06:12→20:46)
[2024-05-29] MEDS: 0.9% Saline Lock 10 ML Syringe IV ×4 (06:15→23:55)
[2024-05-29] MEDS: dexAMETHasone 4 MG/ML Vial IV ×4 (06:15→23:54)
[2024-05-29 07:35] LABS: Absolute Lymphocyte Count 0.66 X10^3/uL (0.83-4.51); Absolute Neutrophil Count 9.7 X10^3/uL (2.0-7.7); Basophil# 0.01 X10^3/uL; Basophil% 0.1 % (0-1); Hematocrit 41.2 % (40-54); Hemoglobin 13.2 g/dL (13.0-16.5); Lymphocyte # 0.66 X10^3/ul (0.83-4.51); Lymphocyte % 6.1 % (19-41); Mean Corpuscular Hgb 28.5 pg (27.0-32.0); Mean Platelet Vol. 10.8 fl (6.2-12.0); Monocyte# 0.33 X10^3/uL; Monocyte% 3.1 % (0-10); NRBC Flagged by Analyzer 0 % (0-5); Neutrophil # 9.67 X10^3/uL (2.7-7.7); Platelet Count 271 K/mm3 (150-450); RBC Distribution Width CV 12.4 % (11.6-14.6); RBC Distribution Width SD 40.4 fl (35.1-43.9); Red Blood Count 4.63 M/mm3 (4.6-6.2); White Blood Count 10.8 K/mm3 (4.4-11.0)
[2024-05-29 08:22] LABS: ALB/GLOB Ratio 0.8 RATIO (0.9-2.4); AST(SGOT) 21 U/L (15-37); Alanine Aminotransfer ALT/SGPT 21 U/L (16-61); Albumin, Serum 2.9 g/dL (3.2-5.0); Alkaline Phosphatase 93 U/L (45-117); Anion Gap 8 (5-15); BUN 28 mg/dL (7-18); BUN/Creat Ratio 35.2 RATIO (10-20); Chloride 106 mmol/L (98-107); EST Glomerular Filtration Rate 98 mL/min (>60); Est Glom Filt Rate - Afr Amer 119 mL/min (>60); Estimated Creatinine Clearance 56.81 ml/min; Globulin 3.7 g/dL (2.2-4.2); Glucose 144 mg/dL (74-106); Potassium 4.2 mmol/L (3.5-5.1); Protein, Total 6.6 g/dL (6.4-8.2); Sodium Level 137 mmol/L (136-145)
[2024-05-29 08:49] LABS: International Normalized Ratio 1.1
[2024-05-29] MEDS: Midazolam 2 MG/2 ML Syringe IV (10:25)
[2024-05-29] MEDS: fentaNYL 100 MCG/2 ML Ampul IV (10:26)
[2024-05-29] MEDS: 0.9% Normal Saline (250mL Bag) 250 ML 15 ML IV (10:28)
[2024-05-29] MEDS: Lidocaine 2% (20 ml mdv) 20 ML Vial INFILT (10:50)
--- NOTE | 2024-05-29 11:00 | RAD_ITS ---
STUDY: X-RAY CHEST REASON FOR EXAM: Male, 84 years old. Post lung biopsy -- Immediately post lung biopsy TECHNIQUE: AP inspiration and expiration views. COMPARISON: Comparison made with prior study dated May 28, 2024. FINDINGS: EKG electrodes are seen. The patient is status post left lung biopsy. No evidence of pneumothorax. Stable left perihilar mass . RAD/Chest Insp/Exp 2 View IMPRESSION: Status post left lung biopsy. No evidence of pneumothorax. Electronically Signed: Vernon Cowart MD at 11:22 EDT ,
[2024-05-29] MEDS: Tamsulosin HCl 0.4 MG Capsule PO (11:25)
[2024-05-29] MEDS: levETIRAcetam 500 MG Tablet PO (11:25)
[2024-05-29] MEDS: Cholecalciferol (Vit D3) 125 MCG CAPSULE (5,000 UNITS) PO (11:25)
[2024-05-29] MEDS: Ascorbic Acid 500 MG Tablet 1000 MG PO (11:26)
[2024-05-29] MEDS: Finasteride 5 MG Tablet PO (11:26)
--- NOTE | 2024-05-29 11:33 | PCM.OP.PRO ---
Procedure Report Date of Procedure: 05/29/24 Assessment & Plan Assessment/Plan (1) Hilar mass: PLAN: PROCEDURE: CT GUIDED CORE NEEDLE LEFT HILAR MASS BIOPSY ORDERING PROVIDER: Dr. Ofelia Rome INDICATION: Male, 84 years old. Left hilar mass PROVIDER: PABLITO Barrientos CONSENT: Written informed consent was obtained having explained the risks, benefits and alternatives in detail with the patient who accepted the risks and agreed to proceed. Laboratory review and clinical assessment was performed. PRE-PROCEDURE SEDATION ASSESSMENT: Current history and physical dictated by referring physician and reviewed. No clinical changes since date of exam. Patient has a Mallampati Score of Class 1 and ASA Class of 3. PROCEDURAL SEDATION PROTOCOL: The Drugs used were: 1 mg Versed, IV, and 25 mcg Fentanyl, IV. The sedation time was: 25 minutes, starting at 1025 and terminated at 1050. The procedural sedation protocol was independently monitored by the department nurse. RADIATION DOSAGE (Supplied By Facility): CTDIvol = 14.77 mGy, DLP = 183.29 mGycm Individualized dose optimization techniques were used for this CT. TECHNIQUE: The patient was placed in a supine position. A noncontrast CT was performed to localize the lesion in the left hilar area. The skin surface was prepped with chlorhexidine and draped in a sterile fashion. 2% lidocaine was used for local anesthesia. Using CT guidance, a 20-gauge coaxial biopsy device was advanced to the periphery of the lesion. A total of 6 core specimens were obtained. Specimens were microscopically reviewed by pathology in the CT suite and placed in formalin solution. BioSentry tract sealant system was deployed at the biopsy site, and the biopsy needle was removed. A sterile occlusive dressing was applied to the biopsy site. The patient tolerated the procedure well. An immediate chest xray was ordered, per protocol. A negative biopsy does not exclude malignancy. Further imaging or clinical followup based on patient condition and degree of clinical suspicion for malignancy. Suggest rebiopsy, if biopsy results do not match with clinical scenario. IMPRESSION: CT directed core needle biopsy of left hilar mass using CT image guidance with image documentation as described. Pathology results are pending. Procedural Sedation protocol utilized with independent monitoring by the department nurse. Procedures Radiology Radiology CT Procedures: 77342 Biopsy Lung
--- NOTE | 2024-05-29 12:30 | NEURO.CONS ---
Assessment and Plan: Neuro Assessment/Plan KIMBERLI WALTERS is a 84 M with a past medical history of , being evaluated by Teleneurology for Diagnosis: Plan: Transfer to [facility] for the following reasons: I personally attended this patient and spent a total time of minutes evaluating this patient including clinical assessment, review of chart, medical history imaging, and determining appropriate treatment and workup. HPI Consult Data Date of Consult: 05/29/24 HPI Narrative HPI Narrative: KIMBERLI WALTERS, is a 84 M who presents [facility] Medical History Wears partial dentures Wears dentures Cancer Depression Anxiety Arthritis Prostate disease Bladder disease Easy bruising Restless legs Back pain Injury of head and neck Heartburn Former smoker Leg cramps History of pain when walking History of edema Hypertension Right carpal tunnel syndrome Enlarged prostate Rheumatoid arthritis Anxiety Hypertension Home Medications ?Medication ?Instructions ?Recorded ?Last Taken ?Type finasteride 5 mg tablet 5 mg PO QDAY #90 tabs 01/09/18 Unknown Rx omega-3 fatty acids-fish oil 360 1 cap PO QDAY 01/09/18 Unknown History mg-1,200 mg capsule (Fish Oil) tamsulosin 0.4 mg capsule 0.4 mg PO DAILY 09/07/22 Unknown History SUPER VEGGIES 1 cap PO/SL BID 09/22/22 Unknown History Super Frui 1 cap PO/SL DAILY 09/22/22 Unknown History acetaminophen 650 mg 650 mg PO QHS 09/22/22 Unknown History tablet,extended release (Tylenol 8 Hour) ascorbic acid (vitamin C) 1,000 mg 1 g PO DAILY 09/22/22 Unknown History chewable tablet cholecalciferol (vitamin D3) 125 125 mcg PO DAILY 09/22/22 Unknown History mcg (5,000 unit) tablet (Vitamin D3) glucosamine sulf dipot 1 cap PO DAILY 09/22/22 Unknown History chlr,msm,chond 550 mg-C 30 mg-jeremy 1 mg capsule (Glucosamine Chondroitin) vitamin B complex 1 cap PO DAILY 09/22/22 Unknown History Allergy/AdvReac Type Severity Reaction Status Date / Time No Known Allergies Allergy Verified 05/28/24 13:03 Family History Father Diabetes CVA (cerebral vascular accident) Brother Diabetes Mother Blood clots in brain Surgical History (Updated 05/28/24 @ 16:[address] Ofelia Rome DO) History of carpal tunnel release Hx of colonoscopy Cataracts, bilateral Social History Smoking Status: Former smoker how long ago did patient quit smokin alcohol intake: never substance use type: does not use what type of physical activity do you participate in: walking frequency: daily Vital Signs Vital Signs Vital Signs: 05/28/24 13:01 05/28/24 14:00 05/28/24 14:10 Temperature 97.8 F Temperature Source Oral Pulse Rate 72 59 L Respiratory Rate 16 20 H Respiratory Effort Respiratory Depth Respiratory Pattern Blood Pressure 180/82 H 157/73 H Blood Pressure Mean 114 101 Blood Pressure Source Blood Pressure Position Blood Pressure Location Baseline BP Pulse Ox 96 Oxygen Delivery Method Room Air Room Air Oxygen Flow Rate (L/min) EtCo2 (Normal 35-45 , high quality CPR 10-20 & ROSC>/=40mmHg 05/28/24 14:13 05/28/24 15:00 05/28/24 16:00 Temperature Temperature Source Pulse Rate 57 L 63 89 Respiratory Rate 18 22 H 24 H Respiratory Effort Respiratory Depth Respiratory Pattern Blood Pressure 157/73 H 175/80 H 158/78 H Blood Pressure Mean 101 111 104 Blood Pressure Source Blood Pressure Position Blood Pressure Location Baseline BP Pulse Ox 100 94 Oxygen Delivery Method Room Air Nasal Cannula Oxygen Flow Rate (L/min) 3 EtCo2 (Normal 35-45 , high quality CPR 10-20 & ROSC>/=40mmHg 05/28/24 17:00 05/28/24 18:00 05/28/24 19:00 Temperature Temperature Source Pulse Rate 61 72 77 Respiratory Rate 18 20 H 16 Respiratory Effort Respiratory Depth Respiratory Pattern Blood Pressure 151/110 H 153/72 H 153/72 H Blood Pressure Mean 123 99 99 Blood Pressure Source Blood Pressure Position Blood Pressure Location Baseline BP Pulse Ox 100 Oxygen Delivery Method Room Air Room Air Room Air Oxygen Flow Rate (L/min) EtCo2 (Normal 35-45 , high quality CPR 10-20 & ROSC>/=40mmHg 05/28/24 20:13 05/28/24 20:23 05/28/24 20:34 Temperature 97.8 F 97 F L Temperature Source Temporal Pulse Rate 77 63 Respiratory Rate 16 16 Respiratory Effort Respiratory Depth Respiratory Pattern Blood Pressure 153/72 H 145/78 H 164/81 H Blood Pressure Mean 99 100 108 Blood Pressure Source Monitor Blood Pressure Position Semi-Fowlers Blood Pressure Location Right Arm Baseline BP Pulse Ox 100 96 Oxygen Delivery Method Room Air Oxygen Flow Rate (L/min) EtCo2 (Normal 35-45 , high quality CPR 10-20 & ROSC>/=40mmHg 05/28/24 22:00 05/28/24 23:24 05/29/24 03:00 Temperature 96.6 F L Temperature Source Temporal Pulse Rate 58 L Respiratory Rate 18 Respiratory Effort Normal Respiratory Depth Normal Respiratory Pattern Normal Blood Pressure 144/76 H Blood Pressure Mean 98 Blood Pressure Source Monitor Blood Pressure Position Semi-Fowlers Blood Pressure Location Right Arm Baseline BP Pulse Ox 97 95 Oxygen Delivery Method Room Air Room Air Room Air Oxygen Flow Rate (L/min) EtCo2 (Normal 35-45 , high quality CPR 10-20 & ROSC>/=40mmHg 05/29/24 04:12 05/29/24 07:57 05/29/24 08:17 Temperature 95.9 F L Temperature Source Temporal Pulse Rate 52 L Respiratory Rate 16 Respiratory Effort Normal Respiratory Depth Normal Respiratory Pattern Normal Blood Pressure 140/84 H Blood Pressure Mean 102 Blood Pressure Source Monitor Blood Pressure Position Blood Pressure Location Baseline BP Pulse Ox 97 96 Oxygen Delivery Method Room Air Room Air Room Air Oxygen Flow Rate (L/min) EtCo2 (Normal 35-45 , high quality CPR 10-20 & ROSC>/=40mmHg 05/29/24 09:01 05/29/24 09:04 05/29/24 10:31 Temperature 97.2 F L Temperature Source Pulse Rate 51 L 56 L Respiratory Rate 17 14 Respiratory Effort Normal Non-Labored Respiratory Depth Respiratory Pattern Normal Blood Pressure 136/65 H 146/64 H Blood Pressure Mean Blood Pressure Source Blood Pressure Position Blood Pressure Location Baseline BP Pulse Ox 95 Oxygen Delivery Method Room Air Room Air Oxygen Flow Rate (L/min) EtCo2 (Normal 35-45 , high quality CPR 10-20 & ROSC>/=40mmHg 15 9 05/29/24 10:32 05/29/24 10:33 05/29/24 10:34 Temperature Temperature Source Pulse Rate 57 L 57 L 56 L Respiratory Rate 17 20 H 16 Respiratory Effort Respiratory Depth Respiratory Pattern Blood Pressure 148/72 H 145/68 H 126/66 H Blood Pressure Mean Blood Pressure Source Blood Pressure Position Blood Pressure Location Baseline BP Pulse Ox Oxygen Delivery Method Room Air Room Air Room Air Oxygen Flow Rate (L/min) EtCo2 (Normal 35-45 , high quality CPR 10-20 & ROSC>/=40mmHg 9 9 9 05/29/24 10:42 05/29/24 10:43 05/29/24 10:55 Temperature Temperature Source Pulse Rate 56 L 55 L Respiratory Rate 19 H 15 Respiratory Effort Respiratory Depth Respiratory Pattern Blood Pressure 137/68 H 147/64 H Blood Pressure Mean Blood Pressure Source Blood Pressure Position Blood Pressure Location Baseline BP Pulse Ox Oxygen Delivery Method Room Air Room Air Room Air Oxygen Flow Rate (L/min) EtCo2 (Normal 35-45 , high quality CPR 10-20 & ROSC>/=40mmHg 9 10 05/29/24 11:00 05/29/24 11:05 05/29/24 11:29 Temperature 97.8 F Temperature Source Temporal Pulse Rate 63 Respiratory Rate 12 Respiratory Effort Respiratory Depth Respiratory Pattern Blood Pressure 162/80 H Blood Pressure Mean 107 Blood Pressure Source Monitor Blood Pressure Position Semi-Fowlers Blood Pressure Location Right Arm Baseline BP Pulse Ox 95 Oxygen Delivery Method Room Air Room Air Room Air Oxygen Flow Rate (L/min) EtCo2 (Normal 35-45 , high quality CPR 10-20 & ROSC>/=40mmHg 11 05/29/24 11:43 Temperature Temperature Source Pulse Rate 64 Respiratory Rate 17 Respiratory Effort Respiratory Depth Respiratory Pattern Normal Blood Pressure 178/88 H Blood Pressure Mean 118 Blood Pressure Source Monitor Blood Pressure Position Semi-Fowlers Blood Pressure Location Right Arm Baseline BP 136/65 Pulse Ox 94 Oxygen Delivery Method Room Air Oxygen Flow Rate (L/min) EtCo2 (Normal 35-45 , high quality CPR 10-20 & ROSC>/=40mmHg Weight Weight: 59.5 kg Body Mass Index (BMI) 19.3 EEG Results Procedure Details EEG Procedure Details: KIMBERLI WALTERS is a 84 year old M with a past medical history of , who presents for evaluation of Electroencephalogram on DATE at TIME Lab / Micro Data 05/29/24 06:53 05/29/24 06:53 Labs: Laboratory Results - last 24 hr 05/28/24 13:25: WBC 11.0, RBC 4.79, Hgb 13.8, Hct 42.9, MCV 89.6, MCH 28.8, MCHC 32.2, RDW Std Deviation 40.8, RDW Coeff of Seun 12.4, Plt Count 278, MPV 11.2, Immature Gran % (Auto) 0.400, Neut % (Auto) 78.2 H, Lymph % (Auto) 11.4 L, Coke % (Auto) 8.9, Eos % (Auto) 0.7, Baso % (Auto) 0.4, Absolute Neuts (auto) 8.6 H, Absolute Lymphs (auto) 1.26, Nucleated RBC % 0, PT 13.9, INR 1.1, APTT 30.0, Sodium 138, Potassium 4.1, Chloride 104, Carbon Dioxide 26.0, Anion Gap 8, BUN 24 H, Creatinine 0.76, Estim Creat Clear Calc 58.34, Est GFR (MDRD) Af Amer 125, Est GFR (MDRD) Non-Af 104, BUN/Creatinine Ratio 31.6 H, Glucose 99, Calcium 9.9, Troponin I High Sens 05/29/24 06:53: WBC 10.8, RBC 4.63, Hgb 13.2, Hct 41.2, MCV 89.0, MCH 28.5, MCHC 32.0, RDW Std Deviation 40.4, RDW Coeff of Seun 12.4, Plt Count 271, MPV 10.8, Immature Gran % (Auto) 0.700, Neut % (Auto) 90.0 H, Lymph % (Auto) 6.1 L, Coke % (Auto) 3.1, Eos % (Auto) 0.0, Baso % (Auto) 0.1, Absolute Neuts (auto) 9.7 H, Absolute Lymphs (auto) 0.66 L, Nucleated RBC % 0, PT 14.0, INR 1.1, Sodium 137, Potassium 4.2, Chloride 106, Carbon Dioxide 23.0, Anion Gap 8, BUN 28 H, Creatinine 0.80, Estim Creat Clear Calc 56.81, Est GFR (MDRD) Af Amer 119, Est GFR (MDRD) Non-Af 98, BUN/Creatinine Ratio 35.2 H, Glucose 144 H, Calcium 10.0, Total Bilirubin 0.40, AST 21, ALT 21, Alkaline Phosphatase 93, Total Protein 6.6, Albumin 2.9 L, Globulin 3.7, Albumin/Globulin Ratio 0.8 L Imaging Radiology Impression Chest X-Ray 05/28/24 13:55 IMPRESSION: Hyperinflation of the right lung. Left hilar mass with loss of volume of the left lung. Malignancy highly likely and chest CT with contrast for further evaluation may be warranted. Electronically Signed: Jarvis Palomares MD at 14:57 EDT Reading Location ID and State: [facility] / [place] , Service support , Head/Neck CTA 05/28/24 13:56 IMPRESSION: Findings suggestive of a 2.8 cm x 2.2 cm irregular hypodensity posterior right temporal parietal lobes suggestive of a possible neoplastic process. Sujata a 70% narrowing at the origin of the right internal carotid artery. Less than 50% narrowing at the origin of the left internal carotid artery. N.B. : The above Results were Read Back by Vernon Cowart MD to Dr Duke MD, and understanding confirmed on 05/28/2024 14:56:45 (ET). Electronically Signed: Vernon Cowart MD at 14:58 EDT , ADDENDUM: 05/28/24 1505 IMPRESSION: Findings suggestive of a 2.8 cm x 2.2 cm irregular hypodensity posterior right temporal parietal lobes suggestive of a possible neoplastic process. Sujata a 70% narrowing at the origin of the right internal carotid artery. Less than 50% narrowing at the origin of the left internal carotid artery. N.B. : The above Results were Read Back by Vernon Cowart MD to Dr Duke MD, and understanding confirmed on 05/28/2024 14:56:45 (ET). 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 Electronically Signed: Augustine Diaz MD at 17:07 EDT , Brain MRI 05/28/24 16:17 IMPRESSION: Mild atrophy and periventricular white matter ischemic changes.. Enhancing lesions with edema in the right temporal and frontal lobes consistent with metastatic disease Electronically Signed: Augustine Diaz MD at 20:40 EDT , Chest X-Ray 05/29/24 11:00 IMPRESSION: Status post left lung biopsy. No evidence of pneumothorax. Electronically Signed: Vernon Cowart MD at 11:22 EDT , Active Medications Active Medications Active Medications: Current Medications Generic Name Dose Route Start Last Admin Trade Name Freq PRN Reason Stop Dose Admin Acetaminophen 1,000 mg 05/28/24 22:00 05/29/24 06:12 Acetaminophen 500 Mg Tablet PO 1,000 mg Q8 REINA Administration Albuterol Sulfate 2.5 mg 05/28/24 20:56 Albuterol 2.5 Mg/3 Ml Vial.Neb. INHALATION Q2H PRN PRN SOB &/OR WHEEZING Ascorbic Acid 1,000 mg 05/29/24 10:00 05/29/24 11:26 Ascorbic Acid 500 Mg Tablet PO 1,000 mg DAILY REINA Administration Cholecalciferol 125 mcg 05/29/24 10:00 05/29/24 11:25 Cholecalciferol (Vit D3) 125 Mcg Capsule (5,000 Units) PO 125 mcg DAILY REINA Administration Dexamethasone Sodium Phosphate 4 mg 05/28/24 22:00 05/29/24 12:13 Dexamethasone 4 Mg/Ml Vial IV 4 mg Q6 REINA Administration Enoxaparin Sodium 40 mg 05/29/24 20:00 Enoxaparin 40 Mg/0.4 Ml Syringe SC DAILY REINA Fentanyl Citrate 25 - 50 mcg 05/29/24 07:39 05/29/24 10:26 Fentanyl 100 Mcg/2 Ml Ampul IV 05/29/24 23:59 25 mcg UD PRN Administration Procedural Pain Control Finasteride 5 mg 05/29/24 10:00 05/29/24 11:26 Finasteride 5 Mg Tablet PO 5 mg DAILY REINA Administration Flumazenil 0.2 mg 05/29/24 07:22 Flumazenil 0.5 Mg/5 Ml Vial IV Q1M PRN Respirations <10 per minute Flumazenil 0.2 mg 05/29/24 07:39 Flumazenil 0.5 Mg/5 Ml Vial IV Q1M PRN Respirations <10 per minute Sodium Chloride 250 mls @ 15 mls/hr 05/29/24 07:30 05/29/24 12:13 IV 05/29/24 23:59 Infused .[id number] REINA Infusion Sodium Chloride 250 mls @ 15 mls/hr 05/29/24 07:45 IV 05/29/24 23:59 .[id number] REINA Labetalol HCl 20 mg 05/28/24 13:55 Labetalol (Prefilled) 20 Mg/4 Ml IV 05/29/24 13:55 X1 PRN BLOOD PRESSURE Levetiracetam 500 mg 05/28/24 22:00 05/29/24 11:25 Levetiracetam 500 Mg Tablet PO 500 mg BID REINA Administration Melatonin 3 mg 05/28/24 22:00 Melatonin 3 Mg Tablet PO QHS PRN PRN INSOMNIA Midazolam HCl 1 - 2 mg 05/29/24 07:39 05/29/24 10:25 Midazolam 2 Mg/2 Ml Syringe IV 05/29/24 23:59 1 mg UD PRN Administration Procedural Sedation Morphine Sulfate 2 - 4 mg 05/28/24 20:56 Morphine 2 Mg/Ml Syringe IV Q3H PRN PRN Pain Score 6-10 Naloxone HCl 0.02 mg 05/29/24 07:39 Naloxone 0.02mg/0.5ml Syringe Kit IV Q1M PRN Respiratory Depression Nutritional Formula (Lactose Free) 120 ml 05/28/24 17:00 05/29/24 12:16 Ensure Plus High Protein 120 Ml Liquid PO Not Given TIDCM REINA Ondansetron HCl 4 mg 05/28/24 20:56 Ondansetron 4 Mg/2 Ml Vial IV Q8H PRN PRN NAUSEA/VOMITING Ondansetron HCl 4 mg 05/29/24 07:39 Ondansetron 4 Mg/2 Ml Vial IV X1 PRN NAUSEA/VOMITING Oxycodone HCl 5 mg 05/28/24 20:56 Oxycodone 5 Mg Tablet PO Q4H PRN PRN Pain Score 4-10 Prochlorperazine Edisylate 5 mg 05/28/24 20:56 Prochlorperazine 10 Mg/2 Ml Vial IV Q4H PRN PRN Breakthrough nausea/vomiting Senna/Docusate Sodium 2 tablet 05/28/24 22:00 Senna/Docusate Sodium 1 Tablet PO BID PRN PRN Constipation Sodium Chloride 10 - 40 ml 05/28/24 21:00 05/29/24 12:13 0.9% Saline Lock 10 Ml Syringe IV 10 ml UD PRN Administration SALINE FLUSH Tamsulosin HCl 0.4 mg 05/29/24 10:00 05/29/24 11:25 Tamsulosin Hcl 0.4 Mg Capsule PO 0.4 mg DAILY REINA Administration
--- NOTE | 2024-05-29 12:35 | CON.PCM.NE_ITS ---
Assessment and Plan: Neuro Assessment/Plan KIMBERLI WALTERS is a 84 M with a past medical history of remote basal cell carcinoma, remote smoking ho, being evaluated by Teleneurology for mass in brain in setting of new headache and hilar mass. There is concern for malignancy present, although unclear what the primary is. Pt with new headache and imaging consistent with either multiple masses or other neuroinflammatory condition. Based on the CT chest, this most likely is metastatic disease, however cannot rule out sarcoidosis until biopsy returns. Patient has already recieved several doses of decadron with improvement in headache. After discussion of condition with patient, he and his family expressed that patient wanted to focus on being more comfortable if t his is cancer and that chemo may not be part of his goals of care. Patient expressed desire to just go home and not be in the hospital for long time. When discussing importance of establishing with neuro-oncology and oncology prior to discharge as close followup would be necessary, patient states he would be ok waiting to establish as outpatient. Pt's exam is sgnificant for more R sided weakness, which given the distribution of his lesion suggests her may have other neuroaxis lesions Plan: - Pt without known seizures, would hold on AEDs at this time - continue decadrom 4mg q6 hrs, recommend dec to 4mg BID after 2 weeks, week 3 - 2mg BID, week 4 - 2mg daily and continue until patient is able to see oncology. - recommend having close oncology followup - consider MRI Cervical spine w/wo con given weakness on exam not explained by Brain imaging. As this would not exchange administrator immediately, can consider obtaining as outpatient. - pending initial results from biopsy - outpatient referral to Neuro-oncology - patient expressed desire to followup in [place] I personally attended this patient and spent a total time of 60 minutes evaluating this patient including clinical assessment, review of chart, medical history imaging, and determining appropriate treatment and workup. HPI Consult Data Date of Consult: 05/29/24 HPI Narrative HPI Narrative: KIMBERLI WALTERS, is a 84 M who presented to the emergency department at [facility] on 05/28/2024 for left-sided foot numbness, left upper extremity numbness and severe headache. He states that headache encompasses his whole head and is better at the present time since he was given morphine in the emergency department. He has had intermittent neck pain since that head trauma about a year or 2 ago and has been seeing a chiropractor. He started seeing chiropractor again because the numbness in his left foot and the chiropractor felt that his spine was out of alignment so he had a cervical spine manipulated and despite his C-spine manipulation his symptoms have not improved so he decided come to the emergency department for further evaluation. He denied any motor symptoms. He states the foot symptoms have been going on for about 3 weeks in the left upper extremity symptoms have been going on for about a week. He does admit to some weight loss in the last several months that was unintentional and has been having some left-sided intermittent chest pain mostly in his back that he attributed to a pulled muscle. He does have a remote history of tobacco abuse and states he quit about 30 years ago. CXR revealed a Cardiomegaly. Large left hilar mass measuring approximately 5 cm in widest diameter, with loss of volume of the left lung. Normal visualized pulmonary arteries. Normal visualized aortic arch and descending thoracic aorta. 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 Pt underwent hilar mass biopsy today. Neurologic History: typically does not have headaches, started 1 week ago. DAWSON worse at night. Bottle freeze assisted withthe pain - OTC meds did not help. DAWSON is improved since starting steroids. Had a slow growing basal cell carcinoma in the R face about 10 yrs ago and had it removed. Did not need other treatment with it. No pain after the biopsy. Has not really lost a lot of weight recently - maybe lost 5 lb. No night sweats. No coughing, has had some short of breath with it but thought was related to sinuses. No rashes, has had some chest pain and L shoulder pain. The numbness on his L foot started for several years. The numbness in the hand started 2 weeks ago. The l leg has been more difficult to move but he states has been going for the last year. [facility] Medical History Wears partial dentures Wears dentures Cancer Depression Anxiety Arthritis Prostate disease Bladder disease Easy bruising Restless legs Back pain Injury of head and neck Heartburn Former smoker Leg cramps History of pain when walking History of edema Hypertension Right carpal tunnel syndrome Enlarged prostate Rheumatoid arthritis Anxiety Hypertension Home Medications ?Medication ?Instructions ?Recorded ?Last Taken ?Type finasteride 5 mg tablet 5 mg PO QDAY #90 tabs 01/09/18 Unknown Rx omega-3 fatty acids-fish oil 360 1 cap PO QDAY 01/09/18 Unknown History mg-1,200 mg capsule (Fish Oil) tamsulosin 0.4 mg capsule 0.4 mg PO DAILY 09/07/22 Unknown History SUPER VEGGIES 1 cap PO/SL BID 09/22/22 Unknown History Super Frui 1 cap PO/SL DAILY 09/22/22 Unknown History acetaminophen 650 mg 650 mg PO QHS 09/22/22 Unknown History tablet,extended release (Tylenol 8 Hour) ascorbic acid (vitamin C) 1,000 mg 1 g PO DAILY 09/22/22 Unknown History chewable tablet cholecalciferol (vitamin D3) 125 125 mcg PO DAILY 09/22/22 Unknown History mcg (5,000 unit) tablet (Vitamin D3) glucosamine sulf dipot 1 cap PO DAILY 09/22/22 Unknown History chlr,msm,chond 550 mg-C 30 mg-jeremy 1 mg capsule (Glucosamine Chondroitin) vitamin B complex 1 cap PO DAILY 09/22/22 Unknown History Allergy/AdvReac Type Severity Reaction Status Date / Time No Known Allergies Allergy Verified 05/28/24 13:03 Family History Father Diabetes CVA (cerebral vascular accident) Brother Diabetes Mother Blood clots in brain Surgical History (Updated 05/28/24 @ 16:[address] Ofelia Rome DO) History of carpal tunnel release Hx of colonoscopy Cataracts, bilateral Social History Smoking Status: Former smoker how long ago did patient quit smokin alcohol intake: never substance use type: does not use what type of physical activity do you participate in: walking frequency: daily Vital Signs Vital Signs Vital Signs: 05/28/24 13:01 05/28/24 14:00 05/28/24 14:10 Temperature 97.8 F Temperature Source Oral Pulse Rate 72 59 L Respiratory Rate 16 20 H Respiratory Effort Respiratory Depth Respiratory Pattern Blood Pressure 180/82 H 157/73 H Blood Pressure Mean 114 101 Blood Pressure Source Blood Pressure Position Blood Pressure Location Baseline BP Pulse Ox 96 Oxygen Delivery Method Room Air Room Air Oxygen Flow Rate (L/min) EtCo2 (Normal 35-45 , high quality CPR 10-20 & ROSC>/=40mmHg 05/28/24 14:13 05/28/24 15:00 05/28/24 16:00 Temperature Temperature Source Pulse Rate 57 L 63 89 Respiratory Rate 18 22 H 24 H Respiratory Effort Respiratory Depth Respiratory Pattern Blood Pressure 157/73 H 175/80 H 158/78 H Blood Pressure Mean 101 111 104 Blood Pressure Source Blood Pressure Position Blood Pressure Location Baseline BP Pulse Ox 100 94 Oxygen Delivery Method Room Air Nasal Cannula Oxygen Flow Rate (L/min) 3 EtCo2 (Normal 35-45 , high quality CPR 10-20 & ROSC>/=40mmHg 05/28/24 17:00 05/28/24 18:00 05/28/24 19:00 Temperature Temperature Source Pulse Rate 61 72 77 Respiratory Rate 18 20 H 16 Respiratory Effort Respiratory Depth Respiratory Pattern Blood Pressure 151/110 H 153/72 H 153/72 H Blood Pressure Mean 123 99 99 Blood Pressure Source Blood Pressure Position Blood Pressure Location Baseline BP Pulse Ox 100 Oxygen Delivery Method Room Air Room Air Room Air Oxygen Flow Rate (L/min) EtCo2 (Normal 35-45 , high quality CPR 10-20 & ROSC>/=40mmHg 05/28/24 20:13 05/28/24 20:23 05/28/24 20:34 Temperature 97.8 F 97 F L Temperature Source Temporal Pulse Rate 77 63 Respiratory Rate 16 16 Respiratory Effort Respiratory Depth Respiratory Pattern Blood Pressure 153/72 H 145/78 H 164/81 H Blood Pressure Mean 99 100 108 Blood Pressure Source Monitor Blood Pressure Position Semi-Fowlers Blood Pressure Location Right Arm Baseline BP Pulse Ox 100 96 Oxygen Delivery Method Room Air Oxygen Flow Rate (L/min) EtCo2 (Normal 35-45 , high quality CPR 10-20 & ROSC>/=40mmHg 05/28/24 22:00 05/28/24 23:24 05/29/24 03:00 Temperature 96.6 F L Temperature Source Temporal Pulse Rate 58 L Respiratory Rate 18 Respiratory Effort Normal Respiratory Depth Normal Respiratory Pattern Normal Blood Pressure 144/76 H Blood Pressure Mean 98 Blood Pressure Source Monitor Blood Pressure Position Semi-Fowlers Blood Pressure Location Right Arm Baseline BP Pulse Ox 97 95 Oxygen Delivery Method Room Air Room Air Room Air Oxygen Flow Rate (L/min) EtCo2 (Normal 35-45 , high quality CPR 10-20 & ROSC>/=40mmHg 05/29/24 04:12 05/29/24 07:57 05/29/24 08:17 Temperature 95.9 F L Temperature Source Temporal Pulse Rate 52 L Respiratory Rate 16 Respiratory Effort Normal Respiratory Depth Normal Respiratory Pattern Normal Blood Pressure 140/84 H Blood Pressure Mean 102 Blood Pressure Source Monitor Blood Pressure Position Blood Pressure Location Baseline BP Pulse Ox 97 96 Oxygen Delivery Method Room Air Room Air Room Air Oxygen Flow Rate (L/min) EtCo2 (Normal 35-45 , high quality CPR 10-20 & ROSC>/=40mmHg 05/29/24 09:01 05/29/24 09:04 05/29/24 10:31 Temperature 97.2 F L Temperature Source Pulse Rate 51 L 56 L Respiratory Rate 17 14 Respiratory Effort Normal Non-Labored Respiratory Depth Respiratory Pattern Normal Blood Pressure 136/65 H 146/64 H Blood Pressure Mean Blood Pressure Source Blood Pressure Position Blood Pressure Location Baseline BP Pulse Ox 95 Oxygen Delivery Method Room Air Room Air Oxygen Flow Rate (L/min) EtCo2 (Normal 35-45 , high quality CPR 10-20 & ROSC>/=40mmHg 15 9 05/29/24 10:32 05/29/24 10:33 05/29/24 10:34 Temperature Temperature Source Pulse Rate 57 L 57 L 56 L Respiratory Rate 17 20 H 16 Respiratory Effort Respiratory Depth Respiratory Pattern Blood Pressure 148/72 H 145/68 H 126/66 H Blood Pressure Mean Blood Pressure Source Blood Pressure Position Blood Pressure Location Baseline BP Pulse Ox Oxygen Delivery Method Room Air Room Air Room Air Oxygen Flow Rate (L/min) EtCo2 (Normal 35-45 , high quality CPR 10-20 & ROSC>/=40mmHg 9 9 9 05/29/24 10:42 05/29/24 10:43 05/29/24 10:55 Temperature Temperature Source Pulse Rate 56 L 55 L Respiratory Rate 19 H 15 Respiratory Effort Respiratory Depth Respiratory Pattern Blood Pressure 137/68 H 147/64 H Blood Pressure Mean Blood Pressure Source Blood Pressure Position Blood Pressure Location Baseline BP Pulse Ox Oxygen Delivery Method Room Air Room Air Room Air Oxygen Flow Rate (L/min) EtCo2 (Normal 35-45 , high quality CPR 10-20 & ROSC>/=40mmHg 9 10 05/29/24 11:00 05/29/24 11:05 05/29/24 11:29 Temperature 97.8 F Temperature Source Temporal Pulse Rate 63 Respiratory Rate 12 Respiratory Effort Respiratory Depth Respiratory Pattern Blood Pressure 162/80 H Blood Pressure Mean 107 Blood Pressure Source Monitor Blood Pressure Position Semi-Fowlers Blood Pressure Location Right Arm Baseline BP Pulse Ox 95 Oxygen Delivery Method Room Air Room Air Room Air Oxygen Flow Rate (L/min) EtCo2 (Normal 35-45 , high quality CPR 10-20 & ROSC>/=40mmHg 11 05/29/24 11:43 Temperature Temperature Source Pulse Rate 64 Respiratory Rate 17 Respiratory Effort Respiratory Depth Respiratory Pattern Normal Blood Pressure 178/88 H Blood Pressure Mean 118 Blood Pressure Source Monitor Blood Pressure Position Semi-Fowlers Blood Pressure Location Right Arm Baseline BP 136/65 Pulse Ox 94 Oxygen Delivery Method Room Air Oxygen Flow Rate (L/min) EtCo2 (Normal 35-45 , high quality CPR 10-20 & ROSC>/=40mmHg Weight Weight: 59.5 kg Body Mass Index (BMI) 19.3 EEG Results Procedure Details EEG Procedure Details: KIMBERLI WALTERS is a 84 year old M with a past medical history of , who presents for evaluation of Electroencephalogram on DATE at TIME Physical Exam Narrative -? General: Laying comfortably in bed; in no acute distress. -? HENT: Normal oropharynx and mucosa. Normal external appearance of ears and nose. Exophthalmos. -? Neck: Supple, no pain or tenderness -? CV:? No peripheral edema. -? Pulmonary:? Normal respiratory effort. -? Ext: No cyanosis, edema, or deformity -? Skin: No rash. Normal palpation of skin.? -? Musculoskeletal: full range of motion; no joint tenderness. Normal digits and nails by inspection. No clubbing. -? NEURO: -? Mental Status: The patient was alert and oriented to time, place, and person. Normal recent/remote memory, concentration, and general fund of knowledge. -? Language: speech is clear.? Naming, repetition, fluency, and comprehension intact. -? Cranial Nerves: PERRL 3 mm/brisk. EOMI, visual vidal full, no facial asymmetry, facial sensation intact, hearing intact, tongue midline, no evidence of atrophy or fibrillations. -? Motor: normal bulk, tone, and strength throughout. RUE pronation. Upper and lower extremities equal bilaterally. l R L SA 4 5 EE EF WE WF Color Television Console Monitor 5 5 HF 4 5 KE 5 5 KF DF PF -? Tone: is normal and bulk is normal -? Sensation- Intact to light touch bilaterally -? Coordination: No dysmetria on [id number], slight ataxia on the RLE -? Gait- deferred Lab / Micro Data 05/29/24 06:53 05/29/24 06:53 Labs: Laboratory Results - last 24 hr 05/28/24 13:25: WBC 11.0, RBC 4.79, Hgb 13.8, Hct 42.9, MCV 89.6, MCH 28.8, MCHC 32.2, RDW Std Deviation 40.8, RDW Coeff of Seun 12.4, Plt Count 278, MPV 11.2, Immature Gran % (Auto) 0.400, Neut % (Auto) 78.2 H, Lymph % (Auto) 11.4 L, [place] % (Auto) 8.9, Eos % (Auto) 0.7, Baso % (Auto) 0.4, Absolute Neuts (auto) 8.6 H, Absolute Lymphs (auto) 1.26, Nucleated RBC % 0, PT 13.9, INR 1.1, APTT 30.0, Sodium 138, Potassium 4.1, Chloride 104, Carbon Dioxide 26.0, Anion Gap 8, BUN 24 H, Creatinine 0.76, Estim Creat Clear Calc 58.34, Est GFR (MDRD) Af Amer 125, Est GFR (MDRD) Non-Af 104, BUN/Creatinine Ratio 31.6 H, Glucose 99, Calcium 9.9, Troponin I High Sens 22 05/29/24 06:53: WBC 10.8, RBC 4.63, Hgb 13.2, Hct 41.2, MCV 89.0, MCH 28.5, MCHC 32.0, RDW Std Deviation 40.4, RDW Coeff of Seun 12.4, Plt Count 271, MPV 10.8, Immature Gran % (Auto) 0.700, Neut % (Auto) 90.0 H, Lymph % (Auto) 6.1 L, [place] % (Auto) 3.1, Eos % (Auto) 0.0, Baso % (Auto) 0.1, Absolute Neuts (auto) 9.7 H, A bsolute Lymphs (auto) 0.66 L, Nucleated RBC % 0, PT 14.0, INR 1.1, Sodium 137, Potassium 4.2, Chloride 106, Carbon Dioxide 23.0, Anion Gap 8, BUN 28 H, Creatinine 0.80, Estim Creat Clear Calc 56.81, Est GFR (MDRD) Af Amer 119, Est GFR (MDRD) Non-Af 98, BUN/Creatinine Ratio 35.2 H, Glucose 144 H, Calcium 10.0, Total Bilirubin 0.40, AST 21, ALT 21, Alkaline Phosphatase 93, Total Protein 6.6, Albumin 2.9 L, Globulin 3.7, Albumin/Globulin Ratio 0.8 L Imaging Radiology Impression Chest X-Ray 05/28/24 13:55 IMPRESSION: Hyperinflation of the right lung. Left hilar mass with loss of volume of the left lung. Malignancy highly likely and chest CT with contrast for further evaluation may be warranted. Electronically Signed: Jarvis Palomares MD at 14:57 EDT , Head/Neck CTA 05/28/24 13:56 IMPRESSION: Findings suggestive of a 2.8 cm x 2.2 cm irregular hypodensity posterior right temporal parietal lobes suggestive of a possible neoplastic process. Sujata a 70% narrowing at the origin of the right internal carotid artery. Less than 50% narrowing at the origin of the left internal carotid artery. N.B. : The above Results were Read Back by Vernon Cowart MD to Dr Duke MD, and understanding confirmed on 05/28/2024 14:56:45 (ET). Electronically Signed: Vernon Cowart MD at 14:58 EDT , ADDENDUM: 05/28/24 1505 IMPRESSION: Findings suggestive of a 2.8 cm x 2.2 cm irregular hypodensity posterior right temporal parietal lobes suggestive of a possible neoplastic process. Sujata a 70% narrowing at the origin of the right internal carotid artery. Less than 50% narrowing at the origin of the left internal carotid artery. N.B. : The above Results were Read Back by Vernon Cowart MD to Dr Duke MD, and understanding confirmed on 05/28/2024 14:56:45 (ET). 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 Electronically Signed: Augustine Diaz MD at 17:07 EDT , Brain MRI 05/28/24 16:17 IMPRESSION: Mild atrophy and periventricular white matter ischemic changes.. Enhancing lesions with edema in the right temporal and frontal lobes consistent with metastatic disease Electronically Signed: Augustine Diaz MD at 20:40 EDT , Chest X-Ray 05/29/24 11:00 IMPRESSION: Status post left lung biopsy. No evidence of pneumothorax. Electronically Signed: Vernon Cowart MD at 11:22 EDT , Active Medications Active Medications Active Medications: Current Medications Generic Name Dose Route Start Last Admin Trade Name Freq PRN Reason Stop Dose Admin Acetaminophen 1,000 mg 05/28/24 22:00 05/29/24 06:12 Acetaminophen 500 Mg Tablet PO 1,000 mg Q8 REINA Administration Albuterol Sulfate 2.5 mg 05/28/24 20:56 Albuterol 2.5 Mg/3 Ml Vial.Neb. INHALATION Q2H PRN PRN SOB &/OR WHEEZING Ascorbic Acid 1,000 mg 05/29/24 10:00 05/29/24 11:26 Ascorbic Acid 500 Mg Tablet PO 1,000 mg DAILY REINA Administration Cholecalciferol 125 mcg 05/29/24 10:00 05/29/24 11:25 Cholecalciferol (Vit D3) 125 Mcg Capsule (5,000 Units) PO 125 mcg DAILY REINA Administration Dexamethasone Sodium Phosphate 4 mg 05/28/24 22:00 05/29/24 12:13 Dexamethasone 4 Mg/Ml Vial IV 4 mg Q6 REINA Administration Enoxaparin Sodium 40 mg 05/29/24 20:00 Enoxaparin 40 Mg/0.4 Ml Syringe SC DAILY REINA Fentanyl Citrate 25 - 50 mcg 05/29/24 07:39 05/29/24 10:26 Fentanyl 100 Mcg/2 Ml Ampul IV 05/29/24 23:59 25 mcg UD PRN Administration Procedural Pain Control Finasteride 5 mg 05/29/24 10:00 05/29/24 11:26 Finasteride 5 Mg Tablet PO 5 mg DAILY REINA Administration Flumazenil 0.2 mg 05/29/24 07:22 Flumazenil 0.5 Mg/5 Ml Vial IV Q1M PRN Respirations <10 per minute Flumazenil 0.2 mg 05/29/24 07:39 Flumazenil 0.5 Mg/5 Ml Vial IV Q1M PRN Respirations <10 per minute Sodium Chloride 250 mls @ 15 mls/hr 05/29/24 07:30 05/29/24 12:13 IV 05/29/24 23:59 Infused .[id number] [facility] Infusion Sodium Chloride 250 mls @ 15 mls/hr 05/29/24 07:45 IV 05/29/24 23:59 .[id number] REINA Labetalol HCl 20 mg 05/28/24 13:55 Labetalol (Prefilled) 20 Mg/4 Ml IV 05/29/24 13:55 X1 PRN BLOOD PRESSURE Levetiracetam 500 mg 05/28/24 22:00 05/29/24 11:25 Levetiracetam 500 Mg Tablet PO 500 mg BID REINA Administration Melatonin 3 mg 05/28/24 22:00 Melatonin 3 Mg Tablet PO QHS PRN PRN INSOMNIA Midazolam HCl 1 - 2 mg 05/29/24 07:39 05/29/24 10:25 Midazolam 2 Mg/2 Ml Syringe IV 05/29/24 23:59 1 mg UD PRN Administration Procedural Sedation Morphine Sulfate 2 - 4 mg 05/28/24 20:56 Morphine 2 Mg/Ml Syringe IV Q3H PRN PRN Pain Score 6-10 Naloxone HCl 0.02 mg 05/29/24 07:39 Naloxone 0.02mg/0.5ml Syringe Kit IV Q1M PRN Respiratory Depression Nutritional Formula (Lactose Free) 120 ml 05/28/24 17:00 05/29/24 12:16 Ensure Plus High Protein 120 Ml Liquid PO Not Given TIDCM [facility] Ondansetron HCl 4 mg 05/28/24 20:56 Ondansetron 4 Mg/2 Ml Vial IV Q8H PRN PRN NAUSEA/VOMITING Ondansetron HCl 4 mg 05/29/24 07:39 Ondansetron 4 Mg/2 Ml Vial IV X1 PRN NAUSEA/VOMITING Oxycodone HCl 5 mg 05/28/24 20:56 Oxycodone 5 Mg Tablet PO Q4H PRN PRN Pain Score 4-10 Prochlorperazine Edisylate 5 mg 05/28/24 20:56 Prochlorperazine 10 Mg/2 Ml Vial IV Q4H PRN PRN Breakthrough nausea/vomiting Senna/Docusate Sodium 2 tablet 05/28/24 22:00 Senna/Docusate Sodium 1 Tablet PO BID PRN PRN Constipation Sodium Chloride 10 - 40 ml 05/28/24 21:00 05/29/24 12:13 0.9% Saline Lock 10 Ml Syringe IV 10 ml UD PRN Administration SALINE FLUSH Tamsulosin HCl 0.4 mg 05/29/24 10:00 05/29/24 11:25 Tamsulosin Hcl 0.4 Mg Capsule PO 0.4 mg DAILY REINA Administration
--- NOTE | 2024-05-29 12:48 | PCM.PN.HOSP ---
Reason for Visit Reason for Visit: Diagnoses Other specified disorders of brain (05/28/24) Headache, unspecified (05/28/24) Other nonspecific abnormal finding of lung field (05/28/24) Subjective Subjective Saw patient at bedside later this morning shortly after he came back from CT-guided lung biopsy. Patient's son and [id number] were at bedside. Patient was sitting up fairly comfortably in bed, conversing normally and in no acute distress. Stated that he tolerated lung biopsy without issue. Patient presented with significant headache and states his headache is much improved today. Also presented with left-sided pain and states this pain is improved as well. He denies any acute concerns currently. Objective Data Objective Data Vital Signs: Vital Signs Temp Pulse Resp BP Pulse Ox O2 Del Method O2 Flow Rate 97.8 F 64 17 178/88 H 94 Room Air 3 05/29/24 11:29 05/29/24 11:43 05/29/24 11:43 05/29/24 11:43 05/29/24 11:43 05/29/24 11:43 05/28/24 16:00 Oxygen Flow Rate (L/min) 3 Oxygen Delivery Method Room Air Weight: 59.5 kg Body Mass Index (BMI) 19.3 Intake & Output: Intake and Output for Last 24 Hours 05/27/24 05/28/24 05/29/24 23:59 23:59 23:59 Intake Total 706.25 / 706.25 Output Total 0 / 0 Balance 706.25 / 706.25 Lab / Micro Data 05/29/24 06:53 05/29/24 06:53 Labs: Laboratory Results - last 24 hr 05/28/24 13:25: WBC 11.0, RBC 4.79, Hgb 13.8, Hct 42.9, MCV 89.6, MCH 28.8, MCHC 32.2, RDW Std Deviation 40.8, RDW Coeff of Seun 12.4, Plt Count 278, MPV 11.2, Immature Gran % (Auto) 0.400, Neut % (Auto) 78.2 H, Lymph % (Auto) 11.4 L, Chester % (Auto) 8.9, Eos % (Auto) 0.7, Baso % (Auto) 0.4, Absolute Neuts (auto) 8.6 H, Absolute Lymphs (auto) 1.26, Nucleated RBC % 0, PT 13.9, INR 1.1, APTT 30.0, Sodium 138, Potassium 4.1, Chloride 104, Carbon Dioxide 26.0, Anion Gap 8, BUN 24 H, Creatinine 0.76, Estim Creat Clear Calc 58.34, Est GFR (MDRD) Af Amer 125, Est GFR (MDRD) Non-Af 104, BUN/Creatinine Ratio 31.6 H, Glucose 99, Calcium 9.9, Troponin I High Sens 22 05/29/24 06:53: WBC 10.8, RBC 4.63, Hgb 13.2, Hct 41.2, MCV 89.0, MCH 28.5, MCHC 32.0, RDW Std Deviation 40.4, RDW Coeff of Seun 12.4, Plt Count 271, MPV 10.8, Immature Gran % (Auto) 0.700, Neut % (Auto) 90.0 H, Lymph % (Auto) 6.1 L, Chester % (Auto) 3.1, Eos % (Auto) 0.0, Baso % (Auto) 0.1, Absolute Neuts (auto) 9.7 H, Absolute Lymphs (auto) 0.66 L, Nucleated RBC % 0, PT 14.0, INR 1.1, Sodium 137, Potassium 4.2, Chloride 106, Carbon Dioxide 23.0, Anion Gap 8, BUN 28 H, Creatinine 0.80, Estim Creat Clear Calc 56.81, Est GFR (MDRD) Af Amer 119, Est GFR (MDRD) Non-Af 98, BUN/Creatinine Ratio 35.2 H, Glucose 144 H, Calcium 10.0, Total Bilirubin 0.40, AST 21, ALT 21, Alkaline Phosphatase 93, Total Protein 6.6, Albumin 2.9 L, Globulin 3.7, Albumin/Globulin Ratio 0.8 L Radiography Diagnostic Testing: Radiology Impression Chest X-Ray 05/28/24 13:55 IMPRESSION: Hyperinflation of the right lung. Left hilar mass with loss of volume of the left lung. Malignancy highly likely and chest CT with contrast for further evaluation may be warranted. Electronically Signed: Jarvis Palomares MD at 14:57 EDT , Head/Neck CTA 05/28/24 13:56 IMPRESSION: Findings suggestive of a 2.8 cm x 2.2 cm irregular hypodensity posterior right temporal parietal lobes suggestive of a possible neoplastic process. Sujata a 70% narrowing at the origin of the right internal carotid artery. Less than 50% narrowing at the origin of the left internal carotid artery. N.B. : The above Results were Read Back by Vernon Cowart MD to Dr Duke MD, and understanding confirmed on 05/28/2024 14:56:45 (ET). Electronically Signed: Vernon Cowart MD at 14:58 EDT , ADDENDUM: 05/28/24 1505 IMPRESSION: Findings suggestive of a 2.8 cm x 2.2 cm irregular hypodensity posterior right temporal parietal lobes suggestive of a possible neoplastic process. Sujata a 70% narrowing at the origin of the right internal carotid artery. Less than 50% narrowing at the origin of the left internal carotid artery. N.B. : The above Results were Read Back by Vernon Cowart MD to Dr Duke MD, and understanding confirmed on 05/28/2024 14:56:45 (ET). 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 Electronically Signed: Augustine Diaz MD at 17:07 EDT , Brain MRI 05/28/24 16:17 IMPRESSION: Mild atrophy and periventricular white matter ischemic changes.. Enhancing lesions with edema in the right temporal and frontal lobes consistent with metastatic disease Electronically Signed: Augustine Diaz MD at 20:40 EDT , Chest X-Ray 05/29/24 11:00 IMPRESSION: Status post left lung biopsy. No evidence of pneumothorax. Electronically Signed: Vernon Cowart MD at 11:22 EDT , Physical Exam Const alert, oriented x3 and no apparent distress Constitutional Narrative: Pleasant elderly male, thin and somewhat cachectic appearing, mildly fatigued appearing, otherwise sitting up comfortably in bed, conversing normally, in no acute distress. General Appearance: cooperative and comfortable HEENT normocephalic, head/scalp atraumatic, hearing grossly normal bilaterally, nasal mucous membranes and turbinates normal and moist oral mucous membranes Eyes PERRL, EOMs intact bilaterally and conjunctivae normal Neck full ROM Chest inspection of chest normal Resp normal respiratory effort and no use of accessory muscles Resp Narrative: Breathing comfortably on room air. Diminished breath sounds on left side but otherwise good air movement throughout. Cardio regular rate, regular rhythm, no murmurs and peripheral pulses 2+ throughout GI normal to inspection, nondistended, normoactive bowel sounds, soft to palpation, non-tender and non-distended Back/Spine normal ROM Extremity normal to inspection, full ROM and no pedal edema Skin no rashes or lesions noted Neuro no focal motor deficits and no sensory deficits noted Speech: speech normal Psych mental status grossly normal Assessment & Plan Assessment/Plan (1) Hilar mass: (2) Severe headache: PLAN: Plan Patient is an 84-year-old male who presented to [facility] ED on 05/28/2024 with worsening headache and left upper extremity and foot numbness. 1. Left hilar mass, concern for lung cancer with metastases ? CT chest on admit showed large left suprahilar mass extending from hilum to pleural surface of left upper lobe consistent with malignancy in association with left peritracheal adenopathy, left eighth rib metastasis and probable left adrenal metastasis. S/p CT-guided biopsy of hilar mass on 05/29. Patient tolerated procedure well. Discussed with pathology and preliminary results will be available tomorrow. If cancer diagnosis is confirmed, patient will need close outpatient follow-up with oncology to determine how aggressive he would like to be with treatment moving forward. 2. Severe headache with lesions in right temporal and frontal lobes, left upper extremity and foot numbness ? Neurology following. MRI brain on admit showed enhancing lesions with edema in right temporal and frontal lobes consistent with metastatic disease. Started on IV Decadron on admission with very good improvement in headache and left-sided numbness. Started on antiepileptic therapy on admission but discontinued on 05/29 per neurology recs. Per neurology, will need referral to outpatient neuro-oncology on discharge either in [place] or [place]. Plan for steroid taper on discharge. Chronic medical conditions: ? 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 ? History of anxiety/depression: Has been doing well off his antidepressants. May need further evaluation in outpatient setting if cancer diagnosis is confirmed. ? History of tobacco abuse: Remote. Continue ongoing cessation. DVT prophylaxis: Lovenox CODE STATUS: DNR CCA, DNI Expected disposition: Home, 1 to 2 days Total clinical time spent by myself addressing the patient's medical issues, reviewing all the data, and collaborating with patient's care team: 35 minutes. Charges/Coding Visit Charges Inpatient E&M: 69655 Subs Hosp L2
--- NOTE | 2024-05-29 13:45 | RAD_ITS ---
STUDY: X-RAY CHEST REASON FOR EXAM: Male, 84 years old. Post lung biopsy -- 2 hours post lung biopsy TECHNIQUE: AP and inspiration expiration views. COMPARISON: Comparison is made with prior study done earlier today. FINDINGS: The patient is status post left lung biopsy. No evidence of pneumothorax on the 2 hour delayed images. RAD/Chest Insp/Exp 2 View IMPRESSION: No evidence of pneumothorax on the 2 hour delayed imaging. Electronically Signed: Vernon Cowart MD at 14:30 EDT ,
--- NOTE | 2024-05-29 15:20 | CASEMGMT ---
JOE ZAMARRIPA Face to Face with patient for initial transition planning/care coordination assessment. RN CM introduced self and role at [facility]. Patient sitting in chair, alert and oriented. Patient willing to participate in assessment and is able to answer all questions appropriately. Care providers, pharmacy, and demographics verified. Strata: 1 PCP: Sume[facility] Specialists: none Preferred Pharmacy: [facility] Insurance: [employer] [facility] Prescription Benefit: yes Living Will/HPOA: Patient believes he has completed and is his daughter, but not sure LNOK: son, daughter Living Arrangements: Patient lives alone in a tri-level home with 7-8 steps and railing between levels. Patient is independent and able to ambulate stairs. Son and DIL live next door. Transportation: son DME/HHC: Patient has cane, walker, and grab bars at home. No previous HHC or SNF. Patient wishes to discharge home, denies need for home health at this time. Patient states he has no further needs or concerns at this time. CM to follow for discharge planning needs that may arise. Disposition Plan: Patient to discharge home with family support and follow-up plans in place. Nichole ROJAS, RN, CM
[2024-05-29] MEDS: Enoxaparin 40 MG/0.4 ML Syringe SC (20:46)
[2024-05-30 03:04] VITALS: BP 155/74; PULSE 62; RESP 16; TEMP 36.4; O2SAT 95
[2024-05-30] MEDS: oxyCODONE 5 MG Tablet PO (03:13)
--- NOTE | 2024-05-30 04:08 | NURSING ---
emergency documentation starting @ 05/29 1900
[2024-05-30] MEDS: Acetaminophen 500 MG Tablet 1000 MG PO ×2 (05:36→13:47)
[2024-05-30] MEDS: dexAMETHasone 4 MG/ML Vial IV (05:36)
[2024-05-30] MEDS: 0.9% Saline Lock 10 ML Syringe IV (05:36)
[2024-05-30] MEDS: Ascorbic Acid 500 MG Tablet 1000 MG PO (08:33)
[2024-05-30] MEDS: Finasteride 5 MG Tablet PO (08:33)
[2024-05-30] MEDS: Tamsulosin HCl 0.4 MG Capsule PO (08:33)
[2024-05-30] MEDS: Enoxaparin 40 MG/0.4 ML Syringe SC (08:33)
[2024-05-30] MEDS: Cholecalciferol (Vit D3) 125 MCG CAPSULE (5,000 UNITS) PO (08:34)
[2024-05-30 09:00] VITALS: BP 137/75; PULSE 66; RESP 16; TEMP 36.4; O2SAT 95
--- NOTE | 2024-05-30 13:42 | PCM.DC ---
Discharge Instructions Diet Discharge Diet: No restrictions Activity Discharge Activity: No Restrictions Follow Up Care Test Results: Test results from this visit will be discussed in further detail at your follow-up appointment, if applicable. Discharge Plan Admission Admit Date/Time: 05/28/24 16:08 Primary Reason for Your Visit: headache and neck pain Attending Provider: Gregg Amos Primary Care Provider: Zack Fay Consulting Providers: Emerson Dorado; Sylvia Hale; Sarah Lacy; Keily Villegas; Rosetta Maria; Narinder Quiñonez; Janelle Jones; Naif Vyas; Paul Lao; Moo Szymanski; Claudia Restrepo; Butch Morel; Lynne Franco; Aly Dupree; Avani Hand; Gian Jimenez; Andree Hendricks; Kar Carrera; Latia Rome; Navarro Chiang; Ofelia Rome Instructions Additional Instructions / Restrictions: You have an appointment scheduled with the oncologist (cancer doctor) on 06/05 at 3:30pm. Please take prednisone 40 mg daily until that appointment. Please use oxycodone 5 mg up to every 6 hours as needed for pain control. Discharge Orders/Prescriptions Prescriptions: New oxycodone 5 mg tablet 5 mg PO Q6H PRN (Reason: pain) 7 Days Qty: 20 0RF prednisone 20 mg tablet 40 mg PO DAILY 7 Days Qty: 14 0RF Continued omega-3 fatty acids-fish oil [Fish Oil] 360-1,200 mg capsule 1 cap PO QDAY finasteride 5 mg tablet 5 mg PO QDAY Qty: 90 3RF tamsulosin 0.4 mg capsule 0.4 mg PO DAILY acetaminophen [Tylenol 8 Hour] 650 mg Tablet Extended Release 650 mg PO QHS ascorbic acid (vitamin C) 1,000 mg Tablet,Chewable 1 g PO DAILY vitamin B complex Capsule 1 cap PO DAILY cholecalciferol (vitamin D3) [Vitamin D3] 125 mcg (5,000 unit) Tablet 125 mcg PO DAILY Glucosamine Chondroitin 550-30-1 mg Capsule 1 cap PO DAILY SUPER VEGGIES 1 cap PO/SL BID Super Frui 1 cap PO/SL DAILY Referrals / Follow Up: Zack Fay MD [Primary Care Provider] - Katya Jason MD [Med Staff - Active Staff] - 06/05/24 3:30 pm Disposition Disposition (needs filled in before D/C Order can be placed): Home, Self Care
--- NOTE | 2024-05-30 13:48 | DS.PCM_ITS ---
Providers Date of Admission: 05/28/24 Date of Discharge: 05/30/24 Primary Care Physician: Dr. Zack Fay MD Consultations 05/28/24 20:56 neuro [Consult: Tele-Neurology] Routine Consulting Provider: [facility] Reason for Consult: Brain mass EMERGENT Consult: No MD Notified: Yes Date Notified: 05/28/24 Time Notified: 21:11 Method of Notification: Answering Service Nursing Unit Staff Notify [facility] of Tele-Neurology Consult: Yes Reason For Visit: CHEST AND BRAIN MASS Diagnosis Discharge Diagnosis (1) Hilar mass: Status: Acute Code(s): R91.8 - Other nonspecific abnormal finding of lung field (2) Severe headache: Status: Acute Code(s): R51.9 - Headache, unspecified Medications at Discharge Home Medications finasteride 5 mg tablet 5 mg PO QDAY prostate #90 tabs 01/09/18 omega-3 fatty acids-fish oil 360 mg-1,200 mg capsule (Fish Oil) 1 cap PO QDAY supplement 01/09/18 tamsulosin 0.4 mg capsule 0.4 mg PO DAILY prostate 09/07/22 SUPER VEGGIES 1 cap PO/SL BID 09/22/22 Super Frui 1 cap PO/SL DAILY 09/22/22 acetaminophen 650 mg tablet,extended release (Tylenol 8 Hour) 650 mg PO QHS pain 09/22/22 ascorbic acid (vitamin C) 1,000 mg chewable tablet 1 g PO DAILY vitamin 09/22/22 cholecalciferol (vitamin D3) 125 mcg (5,000 unit) tablet (Vitamin D3) 125 mcg PO DAILY vitamin 09/22/22 glucosamine sulf dipot chlr,msm,chond 550 mg-C 30 mg-jeremy 1 mg capsule (Glucosamine Chondroitin) 1 cap PO DAILY supplement 09/22/22 vitamin B complex 1 cap PO DAILY vitamin 09/22/22 oxycodone 5 mg tablet 5 mg PO Q6H PRN pain 7 days #20 tabs 05/30/24 prednisone 20 mg tablet 40 mg (2 x 20 mg) PO DAILY 7 days #14 tabs 05/30/24 Hospital Course Operations None Procedures - (CT-guided lung biopsy, chest x-ray x 3, CTA head/neck, CT chest, MRI brain) Summary of Care Provided Minutes Spent on Discharge: 35 Hospital Course: Patient is an 84-year-old male who presented to [facility] ED on 05/28/2024 with worsening headache and neck pain. Hospital course as noted below. Patient discharged home in stable condition on 05/30. 1. 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 CT chest on admit showed large left suprahilar mass extending from hilum to pleural surface of left upper lobe consistent with malignancy in association with left peritracheal adenopathy, left eighth rib metastasis and probable left adrenal metastasis. S/p CT-guided biopsy of hilar mass on 05/29. Patient tolerated procedure well. Preliminary path result on 05/30 was non-small cell lung cancer. Full results will be available by mid next week. Has outpatient appointment scheduled with oncology next 06/05. Oxycodone 5 mg every 6 hours as needed prescribed on discharge. 2. Severe headache with lesions in right temporal and frontal lobes, left upper extremity and foot numbness ? Neurology followed. MRI brain on admit showed enhancing lesions with edema in right temporal and frontal lobes consistent with metastatic disease. Started on IV Decadron on admission with very good improvement in headache and left-sided numbness. Started on antiepileptic therapy on admission but discontinued on 05/29 per neurology recs. Will see oncology next and can determine then if neuro-oncology will need to be involved moving forward depending on family's decision for treatment plan. Discharged on prednisone 40 mg daily and will continue this until oncology appointment. 3. Mild chronic debility ? PT/OT/case management followed. Patient stable for home on discharge with no therapy needs. Family to assist with care at home. Patient did request home hospital bed on discharge. 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 Chronic medical conditions: ? 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 ? History of anxiety/depression: Has been doing well off his antidepressants. May need further evaluation in outpatient setting given new cancer diagnosis as noted above. ? History of tobacco abuse: Remote. Continue ongoing cessation. Total clinical time spent by myself addressing the patient's medical issues, reviewing all the data, and collaborating with patient's care team: 35 minutes. Physical Exam Const alert, oriented x3 and no apparent distress Constitutional Narrative: Pleasant elderly male, thin and somewhat cachectic appearing, mildly fatigued appearing, otherwise sitting up comfortably in bed, conversing normally, in no acute distress. Stable. General Appearance: cooperative and comfortable HEENT normocephalic, head/scalp atraumatic, hearing grossly normal bilaterally, nasal mucous membranes and turbinates normal and moist oral mucous membranes Eyes PERRL, EOMs intact bilaterally and conjunctivae normal Neck full ROM Chest inspection of chest normal Resp normal respiratory effort and no use of accessory muscles Resp Narrative: Breathing comfortably on room air. Diminished breath sounds on left side but otherwise good air movement throughout. Stable. Cardio regular rate, regular rhythm, no murmurs and peripheral pulses 2+ throughout GI normal to inspection, nondistended, normoactive bowel sounds, soft to palpation, non-tender and non-distended Back/Spine normal ROM Extremity normal to inspection, full ROM and no pedal edema Skin no rashes or lesions noted Neuro no focal motor deficits and no sensory deficits noted Speech: speech normal Psych mental status grossly normal Weight / BMI Weight Weight: 59.5 kg Body Mass Index (BMI) 19.3 ABG / Lab / Microbiology Data 05/29/24 06:53 05/29/24 06:53 Radiography Diagnostic Testing: Radiology Impression Chest X-Ray 05/29/24 13:45 IMPRESSION: No evidence of pneumothorax on the 2 hour delayed imaging. Electronically Signed: Vernon Cowart MD at 14:30 EDT Reading Location ID and State: [address] [place] [address] , Service support , D/C Instructions Discharge Diet: No restrictions Meaningful Use Info Meaningful Use Meaningful Use Diagnoses (Choose all that apply): None applicable Ischemic Stroke Statin Dosing Therapy Reference: STATIN DOSE THERAPY REFERENCE: * Patients > 75 years receive moderate or high dose statin therapy. * Patients 75 years or YOUNGER should receive HIGH intensity statin dose unless contraindicated. You will be required to document reason for non-treatment if statin daily dose does not meet guidelines. HIGH DOSE STATIN THERAPY DAILY Atorvastatin > than or = to 40 mg Rosuvastatin > than or = to 20 mg Amlodipine + Atorvastatin > than or = to 2.5/40 mg Ezetimibe + Simvastatin 10/80 mg Simvastatin 80mg Discharge Plan Admission Admit Date/Time: 05/28/24 16:08 Primary Reason for Your Visit: headache and neck pain Attending Provider: Gregg Amos Primary Care Provider: Zack Fay Consulting Providers: Emerson Dorado; Sylvia Hale; Sarah Lacy; Keily Villegas; Rosetta Maria; Narinder Quiñonez; Janelle Jones; Naif Vyas; Paul Lao; Moo Szymanski; Claudia Restrepo; Butch Morel; Lynne Franco; Aly Dupree; Avani Hand; Gian Jimenez; Andree Hendricks; Kar Carrera; Latia Rome; Navarro Chiang; Ofelia Rome Instructions Additional Instructions / Restrictions: You have an appointment scheduled with the oncologist (cancer doctor) on 06/05 at 3:30pm. Please take prednisone 40 mg daily until that appointment. Please use oxycodone 5 mg up to every 6 hours as needed for pain control. Discharge Orders/Prescriptions Prescriptions: New oxycodone 5 mg tablet 5 mg PO Q6H PRN (Reason: pain) 7 Days Qty: 20 0RF prednisone 20 mg tablet 40 mg PO DAILY 7 Days Qty: 14 0RF Continued omega-3 fatty acids-fish oil [Fish Oil] 360-1,200 mg capsule 1 cap PO QDAY finasteride 5 mg tablet 5 mg PO QDAY Qty: 90 3RF tamsulosin 0.4 mg capsule 0.4 mg PO DAILY acetaminophen [Tylenol 8 Hour] 650 mg Tablet Extended Release 650 mg PO QHS ascorbic acid (vitamin C) 1,000 mg Tablet,Chewable 1 g PO DAILY vitamin B complex Capsule 1 cap PO DAILY cholecalciferol (vitamin D3) [Vitamin D3] 125 mcg (5,000 unit) Tablet 125 mcg PO DAILY Glucosamine Chondroitin 550-30-1 mg Capsule 1 cap PO DAILY SUPER VEGGIES 1 cap PO/SL BID Super Frui 1 cap PO/SL DAILY Referrals / Follow Up: Zack Fay MD [Primary Care Provider] - Katya Jason MD [Med Staff - Active Staff] - 09/26/24 3:30 pm Disposition Disposition (needs filled in before D/C Order can be placed): Home, Self Care Charges/Coding Visit Charges Inpatient E&M: 34365 Disch Hosp >30min
--- NOTE | 2024-05-30 14:28 | CASEMGMT ---
Order for DC placed. RN CM to pt room at this time. Pt DIL (Beata) at bedside. Pt states that he still feels safe discharging home alone today and that he has family that lives right next door. Pt states that he would like a hospital bed set up. Pt states that he has been comfortable in the bed here at [facility] and would like this for home use. Pt states that this will benefit him at home. A verbal list of local in network DME companies provided to the pt at this time. Pt prefers [facility]. Rx signed by Dr. Amos and referral sent to [facility] via [employer] at this time. TC to [facility] to notify of referral and [facility] states that they may be able to deliver the bed before the end of the day today. Will follow. Dr. Amos is aware of the required documentation needed for insurance purposes.
[2024-05-30 14:45] VITALS: BP 145/67; PULSE 79; RESP 15; TEMP 36.4; O2SAT 94
== END 2024-05-30 16:24 | disposition home or self-care (01) | DRG 180 ==
LOC: ED 15:47 → PCU 20:37
PROVIDERS: Admitting Provider Internal Medicine; Emergency Provider Emergency Medicine; PCP Family Medicine; Visit Provider Hospitalist
DX: C34.12 Malignant neoplasm of upper lobe, left bronchus or lung (principal); G93.5 Compression of brain; C79.31 Secondary malignant neoplasm of brain; N13.8 Other obstructive and reflux uropathy; M06.9 Rheumatoid arthritis, unspecified; I65.22 Occlusion and stenosis of left carotid artery; I10 Essential (primary) hypertension; G62.9 Polyneuropathy, unspecified; M48.02 Spinal stenosis, cervical region; R00.1 Bradycardia, unspecified; Z79.1 Long term (current) use of non-steroidal anti-inflammatories (NSAID); R51.9 Headache, unspecified; R22.0 Localized swelling, mass and lump, head; Z87.891 Personal history of nicotine dependence; N40.1 Benign prostatic hyperplasia with lower urinary tract symptoms; Z66 Do not resuscitate; Z86.59 Personal history of other mental and behavioral disorders
CPT/HCPCS: 36415; 70496; 70498; 70553; 71045; 71046; 71250; 77012; 80048; 80053; 84484; 85025; 85610; 85730; 88172; 88305; 88313; 88341; 88342; 93005; 94668; 97162; 97802; 99156; 99252; 99285; A9575; Q9967; A4216; C2613; G0463

== ENCOUNTER → 2024-07-22 | Outpatient (CLI) | payer MEDICARE, SELFPAY ==
--- NOTE | 2024-07-22 12:43 | VDLE_ITS ---
Reason For Study: LLE Swelling RIGHT LEFT CFV is compressible, spontaneous, phasic, GSV is normal. competent and demonstrates normal CFV is compressible, spontaneous, phasic, augmentation. competent, and demonstrates normal Procedure augmentation. This is a venous duplex using B-mode, color FV is compressible, spontaneous, phasic, flow and spectral Doppler. competent and demonstrates normal Exam performed in department. augmentation. The exam was diagnostic. POP V is compressible, spontaneous, phasic, A preliminary report was called and/or faxed competent and demonstrates normal to [facility]. augmentation. T/P Trunk is compressible. PTV is compressible. LT PerV is compressible. VL/Venous Duplex US, Unilateral Interpretation Summary Deep veins of the left lower extremity are patent and compressible segmentally. There is no evidence of left lower extremity deep vein thrombosis. Valvular competence appears intac t within the proximal deep venous system on the left . The left great saphenous vein appears patent a nd compressible segmentally. The right common femoral vein is patent and compressible . Ordering Physician: Jaky Abbott Referring Physician: Papo Fay Performed By: Louis Chirinos RVT
== END | disposition home or self-care (01) ==
LOC: CVS 12:38
PROVIDERS: PCP Family Medicine; Referring Provider Nurse Practitioner Family; Visit Provider Nurse Practitioner Family
DX: M79.89 Other specified soft tissue disorders (principal); Z91.89 Other specified personal risk factors, not elsewhere classified
CPT/HCPCS: 93971